=== PATIENT | female | born 1940 | race Caucasian/White ===

== ENCOUNTER 2019-11-29 12:45 | Emergency (ER) | payer MEDICARE ==
[2019-11-29] MEDS ORDERED: BENADRYL 50 MG/ML IV ONE (12:49)
[2019-11-29] MEDS ORDERED: Sodium Chloride 0.9% 1000 ML 1,000 ML IV STA (12:49)
[2019-11-29] MEDS ORDERED: Hydromorphone 1 mg/ml Ampule IV ONE (12:49)
[2019-11-29] MEDS ORDERED: Reglan 10 MG/2 ML IV ONE (12:49)
[2019-11-29] MEDS ORDERED: Hydromorphone 1 mg/ml Ampule ONE (13:00)
[2019-11-29] MEDS ORDERED: Sodium Chloride 0.9% 1000 ML 1,000 ML ONE (13:00)
[2019-11-29] MEDS ORDERED: BENADRYL 50 MG/ML ONE (13:00)
[2019-11-29] MEDS ORDERED: Reglan 10 MG/2 ML ONE (13:00)
[2019-11-29 13:33] LABS: Absolute Neutrophil Ct (ANC) 10.47 (1.4-6.9); BASOPHIL % 0.2 % (0.0-0.4); Basophil (Absolute #) 0.03 (0-0.4); Eosinophil % 0.4 % (0.00-5.0); Eosinophil (Absolute #) 0.05 (0-0.5); Hematocrit 40.6 % (35-47); Hemoglobin 13.5 gm/dl (12.0-16.0); Lymphocyte (Absolute #) 1.16 (1.0-4.6); Lymphocytes % 9.4 % (24.0-44.0); Mean Cell Volume 88.8 fl (78-100); Mean Corpuscular Hemoglobin 29.5 pg (26-32); Mean Corpuscular Hgb Concent. 33.3 g/dl (32-36); Mean Platelet Volume 8.6 fl (7.5-11.0); Monocyte (Absolute #) 0.66 (0.0-1.3); Monocytes % 5.3 % (0.0-12.0); Neutrophil % 84.7 % (36.0-66.0); Platelet Count 314 K/mm3 (150-450); Red Blood Count 4.57 M/mm3 (4.1-5.4); Red Cell Distribution Width 13.7 % (11.5-14.0); White Blood Count 12.4 K/mm3 (4.0-10.5)
[2019-11-29 13:38] LABS: INR 1.13 (0.8-3.0); PROTIME 12.8 SECONDS (9.95-12.35)
[2019-11-29 13:42] LABS: BLOOD UREA NITROGEN 11 mg/dL (7-17); Potassium 3.8 mmol/L (3.5-5.1); SGPT/ALT 17 U/L (0-35)
[2019-11-29 13:52] LABS: ALBUMIN 4.4 g/dL (3.5-5.0); ALKALINE PHOSPHATASE 42 U/L (38-126); ANION GAP 14.6 MEQ/L (5-15); CHLORIDE 91 mmol/L (98-107); Carbon Dioxide 25 mmol/L (22-30); Creatinine 1 0.44 mg/dL (0.52-1.04); Glucose 189 mg/dL (74-106); SGOT/AST 21 U/L (14-36); SODIUM 128 mmol/L (137-145)
[2019-11-29 13:57] LABS: Erythrocyte Sedimentation Rate 2 mm/hr (0-20)
--- NOTE | 2019-11-29 14:03 | XRAY ---
Indication: Headaches. History of migraines. Multiple contiguous axial images obtained through the head without contrast. Comparison: December 08, 2015. Again age-appropriate global atrophy and minimal periventricular degenerative micro-ischemia. No acute intracranial hemorrhage, abnormal extra-axial fluid collection, or mass effect. Fourth ventricle is midline without hydrocephalus. Bony calvarium intact. Visualized paranasal sinuses and mastoid air cells are clear. Impression: Continued nonacute senile brain.
[2019-11-29 14:06] VITALS: BP 143/58; PULSE 78; O2SAT 98
--- NOTE | 2019-11-29 14:57 | ERPHSYRPT ---
- History of Present Illness Time Seen by Provider: 11/29/19 12:50 Patient Subjective Stated Complaint: Pt states "I have had these headaches before. It started yesterday and It hurts on the back of my head. I vomited three times before the ambulance came and got me." Triage Nursing Assessment: Pt presented alert and oriented X 3, skin pwd Pt ambualtes with an upright steady gait, able to speak in clear full sentences pt in no apparent respiratory disterss. Pt has rag over her eyes an Physician History: Aaron is a 79-year-old female who presents with a severe headache she does not have any complaints of weakness drooping of the face etc. she has had some slight nausea and vomiting she has had similar headaches in the past and has been seen here in the ER for those she also reports she is been under a great deal of stress with the recent of her son. She does present by ambulance and her headache started today. Timing/Duration: yesterday Quality: throbbing Head Pain Location: global Severity of Pain-Max: severe Severity of Pain-Current: severe Recent Head Trauma: no recent headache/trauma, frequent headaches Modifying Factors: Improves With: exposure to light, noise Associated Symptoms: nausea/vomiting, sensitive to light, No vision changes, No visual disturbance Previous symptoms: same symptoms as today Allergies/Adverse Reactions: clindamycin Allergy (Intermediate, Verified 04/08/15 17:13) Swelling Penicillins Allergy (Mild, Verified 04/08/15 17:01) Rash aspirin Allergy (Verified 04/08/15 17:13) Hands turn blue when I take a baby aspirin lisinopril Adverse Reaction (Intermediate, Verified 04/08/15 17:13) Cough losartan [Losartan] Adverse Reaction (Intermediate, Verified 04/08/15 17:13) metoprolol Adverse Reaction (Intermediate, Verified 04/08/15 17:13) Nausea doxycycline Adverse Reaction (Mild, Verified 04/08/15 17:13) Diarrhea Home Medications: Glipizide Xl 5 mg [Glucotrol Xl 5 MG] 5 mg PO BID 01/28/12 [History] Metformin HCl 500 mg [Glucophage 500 MG] 850 mg PO BID 01/28/12 [History] Rosuvastatin Calcium [Crestor] 5 mg PO HS 01/28/12 [History] Amlodipine Besylate [Norvasc] 2.5 mg PO DAILY 04/08/15 [History] Aspirin EC 325 mg [Ecotrin 325 MG] 325 mg PO DAILY 04/08/15 [History] Carvedilol 12.5 mg [Coreg 12.5 mg] 12.5 mg PO BID 04/08/15 [History] Hx Tetanus, Diphtheria Vaccination/Date Given: No Hx Influenza Vaccination/Date Given: No Hx Pneumococcal Vaccination/Date Given: No Immunizations Up to Date: Yes Travel Risk - International Travel Have you traveled outside of the country in past 3 weeks: No - Coronavirus Screening Close contact with a COVID-19 positive Pt in past 14-21 Days: No - Review of Systems Constitutional: No Fever, No Chills Eyes: Photophobia Ears, Nose, & Throat: No Symptoms Respiratory: No Cough, No Dyspnea Cardiac: No Chest Pain, No Edema, No Syncope Abdominal/Gastrointestinal: Vomiting, No Abdominal Pain, No Diarrhea Genitourinary Symptoms: No Dysuria Musculoskeletal: No Back Pain, No Neck Pain Skin: No Rash Neurological: Headache, No Dizziness, No Focal Weakness, No Sensory Changes Psychological: No Symptoms Endocrine: No Symptoms All Other Systems: Reviewed and Negative - Past Medical History Pertinent Past Medical History: Yes Neurological History: No Pertinent History, Migraines ENT History: No Pertinent History Cardiac History: High Cholesterol, Hypertension, Other Respiratory History: No Pertinent History Endocrine Medical History: Diabetes Type II Musculoskeletal History: Arthritis GI Medical History: No Pertinent History History: No Pertinent History Psycho-Social History: No Pertinent History Female Reproductive Disorders: No Pertinent History - Past Surgical History Past Surgical History: Yes Neuro Surgical History: No Pertinent History Cardiac: No Pertinent History Respiratory: No Pertinent History Gastrointestinal: No Pertinent History Genitourinary: No Pertinent History Musculoskeletal: Joint Replacement Female Surgical History: Lumpectomy Other Surgical History: cyst from ovaries, cyst from scalp, lumpectomy, KNEE REPLACEMENT - Social History Smoking Status: Never smoker Exposure to second hand smoke: Yes Drug Use: none Patient Lives Alone: No - Nursing Vital Signs Nursing Vital Signs: Initial Vital Signs Temperature 97.8 F 11/29/19 12:45 Pulse Rate 84 11/29/19 12:45 Respiratory Rate 18 11/29/19 12:45 Blood Pressure 150/69 11/29/19 12:45 O2 Sat by Pulse Oximetry 97 11/29/19 12:45 Pain Scale Pain Intensity 4 - Physical Exam General Appearance: moderate distress Eye Exam: PERRL/EOMI Ears, Nose, Throat Exam: normal ENT inspection, moist mucous membranes Neck Exam: normal inspection, supple, full range of motion, No meningismus Respiratory Exam: normal breath sounds, lungs clear Cardiovascular Exam: regular rate/rhythm, normal heart sounds Gastrointestinal/Abdominal Exam: soft, No tenderness, No distention Back Exam: normal inspection, normal range of motion Mental Status Exam: alert, oriented x 3, cooperative agency recruiter Exam: normal speech, PERRL, No facial droop Coordination/Gait Exam: normal cerebellar function Motor/Sensory Exam: no motor deficit, no sensory deficit Skin Exam: normal color, warm, dry, No rash SpO2: 98 - Course Nursing assessment & vital signs reviewed: Yes - CT Exams Head CT Interpretation: Other (CT the head read as non-acute senile brain.) Ordered Tests: Active Orders 24 hr Category Date Time Status HEAD WITHOUT CONTRAST [CT] Stat Exams 11/29/19 12:49 Completed CBC W DIFF Stat Lab 11/29/19 13:25 Completed CMP Stat Lab 11/29/19 13:25 Completed Erythrocyte Sedimentation Rate Stat Lab 11/29/19 13:25 Completed Lactic Acid Urgent Lab 11/29/19 12:49 Completed PROTIME WITH INR Stat Lab 11/29/19 13:25 Completed Medication Summary Discontinued Medications Generic Name Dose Route Start Last Admin Trade Name Freq PRN Reason Stop Dose Admin Diphenhydramine HCl 25 mg 11/29/19 12:49 11/29/19 13:03 Benadryl 50 Mg/Ml IV 11/29/19 12:50 25 mg STAT ONE Administration Diphenhydramine HCl Confirm 11/29/19 13:00 Benadryl 50 Mg/Ml Administered 11/29/19 13:01 Dose 50 mg .ROUTE .STK-MED ONE Hydromorphone HCl 1 mg 11/29/19 12:49 11/29/19 13:03 Hydromorphone 1 Mg/Ml Ampule IV 11/29/19 12:50 1 mg STAT ONE Administration Hydromorphone HCl Confirm 11/29/19 13:00 Hydromorphone 1 Mg/Ml Ampule Administered 11/29/19 13:01 Dose 1 mg .ROUTE .STK-MED ONE Sodium Chloride 1,000 mls @ 999 mls/hr 11/29/19 12:49 11/29/19 13:03 Sodium Chloride 0.9% 1000 Ml IV 11/29/19 13:49 999 mls/hr .Q1H1M STA Administration Sodium Chloride Confirm 11/29/19 13:00 Sodium Chloride 0.9% 1000 Ml Administered 11/29/19 13:01 Dose 1,000 mls @ ud .ROUTE .STK-MED ONE Metoclopramide HCl 10 mg 11/29/19 12:49 11/29/19 13:03 Reglan 10 Mg/2 Ml IV 11/29/19 12:50 10 mg STAT ONE Administration Metoclopramide HCl Confirm 11/29/19 13:00 Reglan 10 Mg/2 Ml Administered 11/29/19 13:01 Dose 10 mg .ROUTE .STK-MED ONE Lab/Rad Data: Laboratory Result Diagrams 11/29/19 13:25 11/29/19 13:25 Laboratory Results 11/29/19 11/29/19 11/29/19 Range/Units 13:25 13:25 13:25 WBC 12.4 H (4.0-10.5) K/mm3 RBC 4.57 (4.1-5.4) M/mm3 Hgb 13.5 (12.0-16.0) gm/dl Hct 40.6 (35-47) % MCV 88.8 (78-100) fl MCH 29.5 (26-32) pg MCHC 33.3 (32-36) g/dl RDW 13.7 (11.5-14.0) % Plt Count 314 (150-450) K/mm3 MPV 8.6 (7.5-11.0) fl Gran % 84.7 H (36.0-66.0) % Eos # (Auto) 0.05 (0-0.5) Absolute Lymphs (auto) 1.16 (1.0-4.6) Absolute Monos (auto) 0.66 (0.0-1.3) Lymphocytes % 9.4 L (24.0-44.0) % Monocytes % 5.3 (0.0-12.0) % Eosinophils % 0.4 (0.00-5.0) % Basophils % 0.2 (0.0-0.4) % Absolute Granulocytes 10.47 H (1.4-6.9) Basophils # 0.03 (0-0.4) ESR 2 (0-20) mm/hr PT 12.8 H (9.95-12.35) SECONDS INR 1.13 (0.8-3.0) Sodium 128 L (137-145) mmol/L Potassium 3.8 (3.5-5.1) mmol/L Chloride 91 L (98-107) mmol/L Carbon Dioxide 25 (22-30) mmol/L Anion Gap 14.6 (5-15) MEQ/L BUN 11 (7-17) mg/dL Creatinine 0.44 L (0.52-1.04) mg/dL Estimated GFR > 60.0 ML/MIN Glucose 189 H (74-106) mg/dL Lactic Acid (0.4-2.0) Calcium 9.0 (8.4-10.2) mg/dL Total Bilirubin 1.20 (0.2-1.3) mg/dL AST 21 (14-36) U/L ALT 17 (0-35) U/L Alkaline Phosphatase 42 (38-126) U/L Serum Total Protein 7.0 (6.3-8.2) g/dL Albumin 4.4 (3.5-5.0) g/dL 11/29/19 Range/Units 12:49 WBC (4.0-10.5) K/mm3 RBC (4.1-5.4) M/mm3 Hgb (12.0-16.0) gm/dl Hct (35-47) % MCV (78-100) fl MCH (26-32) pg MCHC (32-36) g/dl RDW (11.5-14.0) % Plt Count (150-450) K/mm3 MPV (7.5-11.0) fl Gran % (36.0-66.0) % Eos # (Auto) (0-0.5) Absolute Lymphs (auto) (1.0-4.6) Absolute Monos (auto) (0.0-1.3) Lymphocytes % (24.0-44.0) % Monocytes % (0.0-12.0) % Eosinophils % (0.00-5.0) % Basophils % (0.0-0.4) % Absolute Granulocytes (1.4-6.9) Basophils # (0-0.4) ESR (0-20) mm/hr PT (9.95-12.35) SECONDS INR (0.8-3.0) Sodium (137-145) mmol/L Potassium (3.5-5.1) mmol/L Chloride (98-107) mmol/L Carbon Dioxide (22-30) mmol/L Anion Gap (5-15) MEQ/L BUN (7-17) mg/dL Creatinine (0.52-1.04) mg/dL Estimated GFR ML/MIN Glucose (74-106) mg/dL Lactic Acid 2.1 H (0.4-2.0) Calcium (8.4-10.2) mg/dL Total Bilirubin (0.2-1.3) mg/dL AST (14-36) U/L ALT (0-35) U/L Alkaline Phosphatase (38-126) U/L Serum Total Protein (6.3-8.2) g/dL Albumin (3.5-5.0) g/dL - Progress Progress: improved Air Movement: good Blood Culture(s) Obtained: No Antibiotics given: No - Departure Departure Disposition: Home Clinical Impression: Migraine headache Condition: Stable Critical Care Time: No Referrals: SHIRIN CHAPA MD [Primary Care Provider] - Instructions: Headache, Adult (DC) Prescriptions: Hydrocodone/APAP 5-325 Tab^^^ [[place] 5-325 Tablet^^^] 1 tab PO Q6HPRN PRN #10 tablet MDD 6 PRN Reason: Pain
== END 2019-11-29 15:40 | disposition home or self-care (01) ==
LOC: ED 12:45
DX: G43.909 Migraine, unspecified, not intractable, without status migrainosus (principal); I10 Essential (primary) hypertension; E11.9 Type 2 diabetes mellitus without complications; Z79.4 Long term (current) use of insulin; M19.90 Unspecified osteoarthritis, unspecified site
CPT/HCPCS: 36415; 70450; 80053; 83605; 85025; 85610; 85652; 96360; 96374; 96375; 99284; J1170; J1200

== ENCOUNTER 2020-03-31 18:40 | Observation (INO) | payer MEDICARE ==
[2020-03-31] MEDS ORDERED: Sodium Chloride 0.9% 1000 ML 1,000 ML IV SCH ×2 (19:15→23:40)
[2020-03-31 19:29] LABS: Absolute Neutrophil Ct (ANC) 5.16 (1.4-6.9); BASOPHIL % 0.6 % (0.0-0.4); Basophil (Absolute #) 0.05 (0-0.4); Eosinophil % 4.8 % (0.00-5.0); Eosinophil (Absolute #) 0.42 (0-0.5); Hematocrit 42.4 % (35-47); Hemoglobin 13.6 gm/dl (12.0-16.0); Lymphocyte (Absolute #) 2.29 (1.0-4.6); Lymphocytes % 26.1 % (24.0-44.0); Mean Cell Volume 92.6 fl (78-100); Mean Corpuscular Hemoglobin 29.7 pg (26-32); Mean Corpuscular Hgb Concent. 32.1 g/dl (32-36); Mean Platelet Volume 9.3 fl (7.5-11.0); Monocyte (Absolute #) 0.85 (0.0-1.3); Monocytes % 9.7 % (0.0-12.0); Neutrophil % 58.8 % (36.0-66.0); Platelet Count 318 K/mm3 (150-450); Red Blood Count 4.58 M/mm3 (4.1-5.4); Red Cell Distribution Width 13.5 % (11.5-14.0); White Blood Count 8.8 K/mm3 (4.0-10.5)
[2020-03-31 19:34] LABS: ALBUMIN 4.4 g/dL (3.5-5.0); ALKALINE PHOSPHATASE 47 U/L (38-126); ANION GAP 11.9 MEQ/L (5-15); BLOOD UREA NITROGEN 13 mg/dL (7-17); CHLORIDE 94 mmol/L (98-107); Calcium 9.2 mg/dL (8.4-10.2); Carbon Dioxide 28 mmol/L (22-30); Creatinine 1 0.38 mg/dL (0.52-1.04); EST GLOMERULAR FILTRATION RATE > 60.0 ML/MIN; Glucose 141 mg/dL (74-106); MAGNESIUM 1.7 mg/dL (1.6-2.3); SGOT/AST 22 U/L (14-36); SGPT/ALT 19 U/L (0-35); SODIUM 130 mmol/L (137-145); Total Protein 7.4 g/dL (6.3-8.2)
[2020-03-31] MEDS ORDERED: Sodium Chloride 0.9% 1000 ML 1,000 ML ONE (19:39)
--- NOTE | 2020-03-31 19:59 | ERPHSYRPT ---
- History of Present Illness Time Seen by Provider: 03/31/20 19:20 Source: patient Patient Subjective Stated Complaint: DAI and dizziness Triage Nursing Assessment: pt to ED c/o DAI and dizziness onset this late afternoon. states DAI 2/10 mostly "dizzy feeling and spinning." states dizziness occasionally casuses nausea without emesis. denies abd pain. to ED in WC and assist x 1 [address] bed. A&Ox4. skin PWD. pt presents laying in bed with closed eyes to prevent spinning. denies cardiac hx Physician History: Patient is a 79-year-old female presents to our ED for evaluation of headache and dizziness that started late this afternoon. Patient is not sure exactly what time her symptoms started but she estimates approximately 5 PM. Upon arrival patient was triaged by the dayshift. Dr. Patel saw the physician at approximately 720 after change of shift signout. Patient describes her dizziness as the room spinning. Patient states her symptoms are worse when she sits up. She expresses mild nausea. No vomiting. Patient headache is 2 out of 10. No associated numbness tingling or weakness. No trauma. No fever. No photophobia. Patient has no meningeal signs. No known Covid exposure. Chest pain or shortness of breath. Patient voices no other complaints concerns at this time. Timing/Duration: today Severity: moderate Modifying Factors: Improves With: nothing Associated Symptoms: nausea, headaches Allergies/Adverse Reactions: clindamycin Allergy (Intermediate, Verified 03/31/20 18:50) Swelling Penicillins Allergy (Mild, Verified 03/31/20 18:50) Rash aspirin Allergy (Verified 03/31/20 18:50) Hands turn blue when I take a baby aspirin lisinopril Adverse Reaction (Intermediate, Verified 03/31/20 18:50) Cough losartan [Losartan] Adverse Reaction (Intermediate, Verified 03/31/20 18:50) metoprolol Adverse Reaction (Intermediate, Verified 03/31/20 18:50) Nausea doxycycline Adverse Reaction (Mild, Verified 03/31/20 18:50) Diarrhea Home Medications: Glipizide Xl 5 mg [Glucotrol Xl 5 MG] 5 mg PO BID 01/28/12 [History] Metformin HCl 500 mg [Glucophage 500 MG] 850 mg PO BID 01/28/12 [History] Rosuvastatin Calcium [Crestor] 20 mg PO HS 10/20/12 [History] Amlodipine Besylate [Norvasc] 5 mg PO DAILY 04/08/15 [History] Aspirin EC 325 mg [Ecotrin 325 MG] 325 mg PO DAILY 04/08/15 [History] Carvedilol 12.5 mg [Coreg 12.5 mg] 12.5 mg PO BID 04/08/15 [History] Cyanocobalamin/Folic AC/Vit B6 [[place] Tablet] 1 tab PO DAILY 03/31/20 [History] Donepezil HCl 5 mg PO HS 03/31/20 [History] Hx Tetanus, Diphtheria Vaccination/Date Given: No Hx Influenza Vaccination/Date Given: No Hx Pneumococcal Vaccination/Date Given: No Travel Risk - International Travel Have you traveled outside of the country in past 3 weeks: No - Coronavirus Screening Are you exhibiting any of the following symptoms?: No Close contact with a COVID-19 positive Pt in past 14-21 Days: No - Review of Systems Constitutional: No Symptoms, No Fever, No Chills Eyes: No Symptoms Ears, Nose, & Throat: No Symptoms Respiratory: No Symptoms, No Cough, No Dyspnea Cardiac: No Symptoms, No Chest Pain, No Edema, No Syncope Abdominal/Gastrointestinal: No Symptoms, No Abdominal Pain, No Nausea, No Vomiting, No Diarrhea Genitourinary Symptoms: No Symptoms, No Dysuria Musculoskeletal: No Symptoms, No Back Pain, No Neck Pain Skin: No Symptoms, No Rash Neurological: No Symptoms, No Dizziness, No Focal Weakness, No Sensory Changes Psychological: No Symptoms Endocrine: No Symptoms Hematologic/Lymphatic: No Symptoms Immunological/Allergic: No Symptoms All Other Systems: Reviewed and Negative - Past Medical History Pertinent Past Medical History: Yes Neurological History: Migraines ENT History: No Pertinent History Cardiac History: High Cholesterol, Hypertension, Other Respiratory History: No Pertinent History Endocrine Medical History: Diabetes Type II Musculoskeletal History: Arthritis GI Medical History: No Pertinent History History: No Pertinent History Psycho-Social History: No Pertinent History Female Reproductive Disorders: No Pertinent History - Past Surgical History Past Surgical History: Yes Neuro Surgical History: No Pertinent History Cardiac: No Pertinent History Respiratory: No Pertinent History Gastrointestinal: No Pertinent History Genitourinary: No Pertinent History Musculoskeletal: Joint Replacement Female Surgical History: Lumpectomy Other Surgical History: cyst from ovaries, cyst from scalp, lumpectomy, KNEE REPLACEMENT - Social History Smoking Status: Never smoker Exposure to second hand smoke: Yes Drug Use: none Patient Lives Alone: No - Female History Hx Now: No - Nursing Vital Signs Nursing Vital Signs: Initial Vital Signs Pulse Rate 80 03/31/20 18:42 Respiratory Rate 20 03/31/20 18:42 O2 Sat by Pulse Oximetry 99 03/31/20 18:42 Pain Scale Pain Intensity 2 - Physical Exam General Appearance: no apparent distress, alert Eye Exam: PERRL/EOMI, eyes nml inspection Ears, Nose, Throat Exam: normal ENT inspection, TMs normal, pharynx normal, moist mucous membranes Neck Exam: normal inspection, non-tender, supple, full range of motion Respiratory Exam: normal breath sounds, lungs clear, No respiratory distress Cardiovascular Exam: regular rate/rhythm, normal heart sounds, normal peripheral pulses Gastrointestinal/Abdomen Exam: soft, normal bowel sounds, No tenderness, No mass Back Exam: normal inspection, normal range of motion, No CVA tenderness, No vertebral tenderness Extremity Exam: normal inspection, normal range of motion, pelvis stable Neurologic Exam: alert, oriented x 3, cooperative (No focal or lateralizing symptoms.), normal mood/affect, sensation nml, No motor deficits Skin Exam: normal color, warm, dry, No rash Lymphatic Exam: No adenopathy SpO2 Interpretation: normal SpO2: 97 O2 Delivery: Room Air - Course Nursing assessment & vital signs reviewed: Yes - CT Exams Head CT Interpretation: Tele-radiologist Report (CT angiogram head and neck. No comparison. Minimal calcifications left ICA without critical stenosis or obstruction. Normal variant origin remaining CTA [place] negative.) Other CT Interpretation: Tele-radiologist Report (Jermaine neck did mild left and minimal right carotid calcifications without critical stenosis or obstruction. Normal CTA vertebral arteries. Osteopenia and multilevel degenerative disc disease) Ordered Tests: Active Orders 24 hr Category Date Time Status Master Control Supervisor STAT Care 03/31/20 19:12 Active EKG-ER Only STAT Care 03/31/20 19:11 Active IV Insertion STAT Care 03/31/20 19:11 Active NPO (ED) STAT Care 03/31/20 19:59 Active Pulse Oximetry (ED) STAT Care 03/31/20 19:11 Active Consult Tele-Health [Tele-Health Consult] ROUTINE Cons 03/31/20 19:59 Active CTA HEAD W AND/OR WO CONTRAST [CT] Stat Exams 03/31/20 20:39 Taken HEAD WITHOUT CONTRAST [CT] Stat Exams 03/31/20 19:13 Taken NECK WITH CONTRAST [CT] Stat Exams 03/31/20 20:42 Taken CBC W DIFF Stat Lab 03/31/20 18:50 Completed CMP Stat Lab 03/31/20 18:50 Completed CULTURE,URINE Stat Lab 03/31/20 20:32 Received MAGNESIUM Stat Lab 03/31/20 18:50 Completed TROPONIN Q3H Lab 03/31/20 18:55 Completed TROPONIN Q3H Lab 03/31/20 23:00 Ordered TROPONIN Q3H Lab 04/01/20 02:00 Ordered TROPONIN Q3H Lab 04/01/20 05:00 Ordered TROPONIN Q3H Lab 04/01/20 08:00 Ordered UA W/RFX UR CULTURE Stat Lab 03/31/20 20:32 Completed Medication Summary Generic Name Dose Route Start Last Admin Trade Name Freq PRN Reason Stop Dose Admin Sodium Chloride 1,000 mls @ 100 mls/hr 03/31/20 19:15 03/31/20 19:44 Sodium Chloride 0.9% 1000 Ml IV 04/30/20 19:14 100 mls/hr .Q10H JOSE Administration Discontinued Medications Generic Name Dose Route Start Last Admin Trade Name Freq PRN Reason Stop Dose Admin Meclizine HCl 25 mg 03/31/20 22:52 Antivert 25 Mg PO 03/31/20 22:53 STAT ONE Ondansetron HCl 4 mg 03/31/20 20:36 03/31/20 20:36 Zofran 4 Mg/2 Ml Vial IV 03/31/20 20:37 4 mg STAT ONE Administration Ondansetron HCl Confirm 03/31/20 20:35 Zofran 4 Mg/2 Ml Vial Administered 03/31/20 20:36 Dose 4 mg .ROUTE .STK-MED ONE Lab/Rad Data: Laboratory Result Diagrams 03/31/20 18:50 03/31/20 18:50 Laboratory Results 03/31/20 03/31/20 03/31/20 Range/Units 20:32 18:55 18:50 WBC (4.0-10.5) K/mm3 RBC (4.1-5.4) M/mm3 Hgb (12.0-16.0) gm/dl Hct (35-47) % MCV (78-100) fl MCH (26-32) pg MCHC (32-36) g/dl RDW (11.5-14.0) % Plt Count (150-450) K/mm3 MPV (7.5-11.0) fl Gran % (36.0-66.0) % Eos # (Auto) (0-0.5) Absolute Lymphs (auto) (1.0-4.6) Absolute Monos (auto) (0.0-1.3) Lymphocytes % (24.0-44.0) % Monocytes % (0.0-12.0) % Eosinophils % (0.00-5.0) % Basophils % (0.0-0.4) % Absolute Granulocytes (1.4-6.9) Basophils # (0-0.4) Sodium 130 L (137-145) mmol/L Potassium 4.0 (3.5-5.1) mmol/L Chloride 94 L (98-107) mmol/L Carbon Dioxide 28 (22-30) mmol/L Anion Gap 11.9 (5-15) MEQ/L BUN 13 (7-17) mg/dL Creatinine 0.38 L (0.52-1.04) mg/dL Estimated GFR > 60.0 ML/MIN Glucose 141 H (74-106) mg/dL Calcium 9.2 (8.4-10.2) mg/dL Magnesium 1.7 (1.6-2.3) mg/dL Total Bilirubin 0.80 (0.2-1.3) mg/dL AST 22 (14-36) U/L ALT 19 (0-35) U/L Alkaline Phosphatase 47 (38-126) U/L Troponin I < 0.012 (0.000-0.034) ng/mL Serum Total Protein 7.4 (6.3-8.2) g/dL Albumin 4.4 (3.5-5.0) g/dL Urine Color YELLOW (YELLOW) Urine Appearance CLOUDY (CLEAR) Urine pH 8.0 (5-6) Ur Specific [place] 1.009 (1.005-1.025) Urine Protein NEGATIVE (Negative) Urine Ketones TRACE (NEGATIVE) Urine Blood SMALL (0-5) [place]/ul Urine Nitrite NEGATIVE (NEGATIVE) Urine Bilirubin NEGATIVE (NEGATIVE) Urine Urobilinogen NEGATIVE (0-1) mg/dL Ur Leukocyte Esterase SMALL (NEGATIVE) Urine WBC (Auto) 3-5 (0-5) /HPF Urine RBC (Auto) 6-10 (0-2) /HPF U Epithel Cells (Auto) RARE (FEW) /HPF Urine Bacteria (Auto) RARE (NEGATIVE) /HPF Amorphous Crystals FEW (NEGATIVE) /HPF Urine Mucus (Auto) SLIGHT (NEGATIVE) /HPF Urine Culture Reflexed YES (NO) Urine Glucose 50 (NEGATIVE) mg/dL 03/31/20 Range/Units 18:50 WBC 8.8 (4.0-10.5) K/mm3 RBC 4.58 (4.1-5.4) M/mm3 Hgb 13.6 (12.0-16.0) gm/dl Hct 42.4 (35-47) % MCV 92.6 (78-100) fl MCH 29.7 (26-32) pg MCHC 32.1 (32-36) g/dl RDW 13.5 (11.5-14.0) % Plt Count 318 (150-450) K/mm3 MPV 9.3 (7.5-11.0) fl Gran % 58.8 (36.0-66.0) % Eos # (Auto) 0.42 (0-0.5) Absolute Lymphs (auto) 2.29 (1.0-4.6) Absolute Monos (auto) 0.85 (0.0-1.3) Lymphocytes % 26.1 (24.0-44.0) % Monocytes % 9.7 (0.0-12.0) % Eosinophils % 4.8 (0.00-5.0) % Basophils % 0.6 (0.0-0.4) % Absolute Granulocytes 5.16 (1.4-6.9) Basophils # 0.05 (0-0.4) Sodium (137-145) mmol/L Potassium (3.5-5.1) mmol/L Chloride (98-107) mmol/L Carbon Dioxide (22-30) mmol/L Anion Gap (5-15) MEQ/L BUN (7-17) mg/dL Creatinine (0.52-1.04) mg/dL Estimated GFR ML/MIN Glucose (74-106) mg/dL Calcium (8.4-10.2) mg/dL Magnesium (1.6-2.3) mg/dL Total Bilirubin (0.2-1.3) mg/dL AST (14-36) U/L ALT (0-35) U/L Alkaline Phosphatase (38-126) U/L Troponin I (0.000-0.034) ng/mL Serum Total Protein (6.3-8.2) g/dL Albumin (3.5-5.0) g/dL Urine Color (YELLOW) Urine Appearance (CLEAR) Urine pH (5-6) Ur Specific [place] (1.005-1.025) Urine Protein (Negative) Urine Ketones (NEGATIVE) Urine Blood (0-5) [place]/ul Urine Nitrite (NEGATIVE) Urine Bilirubin (NEGATIVE) Urine Urobilinogen (0-1) mg/dL Ur Leukocyte Esterase (NEGATIVE) Urine WBC (Auto) (0-5) /HPF Urine RBC (Auto) (0-2) /HPF U Epithel Cells (Auto) (FEW) /HPF Urine Bacteria (Auto) (NEGATIVE) /HPF Amorphous Crystals (NEGATIVE) /HPF Urine Mucus (Auto) (NEGATIVE) /HPF Urine Culture Reflexed (NO) Urine Glucose (NEGATIVE) mg/dL - Progress Progress: improved Progress Note: 03/31/20 20:11 Patient was seen in room 9 initially. Upon my evaluation posterior circulation stroke was high on my differential. Stat CT head without contrast was ordered. CT head negative. Teleneuro states patient is not a candidate for TPA. IV fluids administered. Aspirin administered. CTA head and neck are negative for critical obstruction/acute pathology. IV fluids administered. Aspirin not given as patient has an allergy to aspirin. Case discussed with Dr. Chapa who accepts admission to observation. Plan of care discussed with patient. She agrees to admission to [facility] for further evaluation and treatment. 03/31/20 22:38 Please observe teleneuro recommendations. 03/31/20 22:53 03/31/20 22:55 Discussed with : Gilson Will see patient in: hospital (observation) Counseled pt/family regarding: lab results, diagnosis, rad results - Departure Departure Disposition: Home Clinical Impression: Dizziness, Nausea, Headache Condition: Stable Critical Care Time: No Referrals: SHIRIN CHAPA MD [Primary Care Provider] -
[2020-03-31] MEDS ORDERED: Zofran 4 MG/2 ML VIAL ONE (20:35)
[2020-03-31] MEDS ORDERED: Zofran 4 MG/2 ML VIAL IV ONE (20:36)
[2020-03-31 20:50] LABS: Amourphous Crystal FEW /HPF (NEGATIVE); Appearance CLOUDY (CLEAR); Bacteria RARE /HPF (NEGATIVE); Bilirubin NEGATIVE (NEGATIVE); Blood SMALL Ery/ul (0-5); Epithelial Cells RARE /HPF (FEW); Glucose 50 mg/dL (NEGATIVE); Ketones TRACE (NEGATIVE); Leukocyte Esterase SMALL (NEGATIVE); Mucus SLIGHT /HPF (NEGATIVE); Nitrite NEGATIVE (NEGATIVE); Protein,Urine Dip NEGATIVE (Negative); Specific Gravity 1.009 (1.005-1.025); Urobilinogen NEGATIVE mg/dL (0-1)
[2020-03-31] MEDS ORDERED: ANTIVERT 25 MG PO ONE (22:52)
[2020-03-31] MEDS ORDERED: ANTIVERT 25 MG ONE (22:54)
[2020-04-01 05:27] LABS: Absolute Neutrophil Ct (ANC) 6.91 (1.4-6.9); BASOPHIL % 0.3 % (0.0-0.4); Basophil (Absolute #) 0.03 (0-0.4); Eosinophil % 0.1 % (0.00-5.0); Eosinophil (Absolute #) 0.01 (0-0.5); Hematocrit 41.4 % (35-47); Hemoglobin 13.5 gm/dl (12.0-16.0); Lymphocyte (Absolute #) 1.37 (1.0-4.6); Lymphocytes % 15.4 % (24.0-44.0); Mean Cell Volume 91.4 fl (78-100); Mean Corpuscular Hemoglobin 29.8 pg (26-32); Mean Corpuscular Hgb Concent. 32.6 g/dl (32-36); Mean Platelet Volume 9.3 fl (7.5-11.0); Monocyte (Absolute #) 0.55 (0.0-1.3); Monocytes % 6.2 % (0.0-12.0); Platelet Count 317 K/mm3 (150-450); Red Blood Count 4.53 M/mm3 (4.1-5.4); Red Cell Distribution Width 13.2 % (11.5-14.0); White Blood Count 8.9 K/mm3 (4.0-10.5)
[2020-04-01 05:44] LABS: ALBUMIN 4.4 g/dL (3.5-5.0); ALKALINE PHOSPHATASE 43 U/L (38-126); ANION GAP 14.6 MEQ/L (5-15); BLOOD UREA NITROGEN 10 mg/dL (7-17); CHLORIDE 92 mmol/L (98-107); Calcium 9.3 mg/dL (8.4-10.2); Carbon Dioxide 26 mmol/L (22-30); Creatinine 1 0.41 mg/dL (0.52-1.04); EST GLOMERULAR FILTRATION RATE > 60.0 ML/MIN; Glucose 179 mg/dL (74-106); Potassium 4.5 mmol/L (3.5-5.1); SGOT/AST 19 U/L (14-36); SGPT/ALT 18 U/L (0-35); SODIUM 128 mmol/L (137-145); Total Protein 7.1 g/dL (6.3-8.2)
--- NOTE | 2020-04-01 08:47 | XRAY ---
Indication: Dizziness. Multiple contiguous axial images obtained through the head without contrast. Comparison: November 29, 2019. Stable age-appropriate global atrophy and minimal periventricular degenerative micro-ischemia. Again no acute intracranial hemorrhage, abnormal extra-axial fluid collection, or mass effect. Fourth ventricle is midline without hydrocephalus. Bony calvarium intact. Visualized paranasal sinuses and mastoid air cells are clear. Impression: Stable nonacute senile brain.
--- NOTE | 2020-04-01 08:53 | XRAY ---
Indication: Headache, dizziness, and hypertension. Large vessel occlusion. Conventional contrast-enhanced CTA neck performed using 100 cc Isovue 370 contrast. Two-dimensional sagittal and coronal reformatted images obtained. Comparison: None Aortic arch not included in the [id number]. Examination of the right carotid circulation demonstrates very minimal eccentric calcifications at the origin of the common carotid, carotid bulb, and origin internal carotid arteries without critical stenosis/obstruction. Remaining right carotid circulation normal in CTA appearance. Examination of the left carotid circulation demonstrates mild calcifications at the level of the bulb extending into the origin of the internal carotid artery without critical stenosis/obstruction. Remaining left carotid circulation normal in CTA appearance. Vertebral arteries are bilaterally symmetric with the left slightly larger in caliber. No critical stenosis, obstruction, or AV malformation. Visualized soft tissues are negative for pathologic cervical/supraclavicular lymphadenopathy. Thyroid gland enhances homogeneously. Supra and infraglottic airway widely patent. Osseous structures demineralized consistent with patient's age. Cervical spine demonstrates lordotic reversal, mild multilevel bilateral degenerative facet arthropathy, and minimal C5-C6 disc space narrowing. Lung apices are clear. CT and CTA head reported separately. Impression: 1. Minimal/mild scattered carotid calcifications, left greater than right as detailed above. Negative for critical stenosis/obstruction. 2. Incidental chronic bony findings.
--- NOTE | 2020-04-01 08:59 | XRAY ---
Indication: Headache, dizziness, and hypertension. Large vessel occlusion. Conventional contrast-enhanced CTA head performed using 100 cc Isovue 370 contrast. Two-dimensional sagittal and coronal reformatted images obtained. Comparison: None CTA neck reported separately. Distal internal carotid arteries demonstrates minimal scattered calcifications, left greater than right. No critical stenosis, projection, or AV malformation. Normal carotid terminus with normal branching A1 and M1 segments bilaterally. The more distal anterior cerebral, middle cerebral, anterior communicating, and left posterior communicating arteries are normal in CTA appearance. Incidental anatomic variant for origin of the right posterior cerebral artery. Posterior circulation demonstrates basilar artery to be normal in course and caliber and unremarkable. The branching superior cerebellar, anterior inferior cerebellar, and left posterior cerebral arteries are normal in CTA appearance. Venous drainage unremarkable. No abnormal enhancing intra-or extra-axial mass. CT head reported separately. Impression: Minimal scattered internal carotid artery calcifications, left greater than right. CTA brain is negative for critical stenosis/obstruction.
[2020-04-01] MEDS ORDERED: COREG 12.5 MG PO SCH (10:45)
[2020-04-01] MEDS ORDERED: FOLTX (FOLBIC) PO SCH (11:00)
[2020-04-01] MEDS ORDERED: Glucotrol Xl 2.5 MG PO SCH (11:00)
[2020-04-01] MEDS ORDERED: Glucophage 500 MG PO SCH (11:00)
[2020-04-01] MEDS ORDERED: NORVASC 5 MG PO SCH (11:00)
[2020-04-01] MEDS ORDERED: ECOTRIN 81 MG PO SCH (11:00)
--- NOTE | 2020-04-01 11:42 | PCM.SSS ---
History of Present Illness - Chief Complaint Chief Complaint: Headache, weakness, nausea for 1 day History of Present Illness: is a 79 year old female. presents to our ED for evaluation of headache and dizziness that started late this afternoon. Patient is not sure exactly what time her symptoms started but she estimates approximately 5 PM. Upon arrival patient was triaged by the dayshift. Dr. Patel saw the physician at approximately 720 after change of shift signout. Patient describes her dizziness as the room spinning. Patient states her symptoms are worse when she sits up. She expresses mild nausea. No vomiting. Patient headache is 2 out of 10. No associated numbness tingling or weakness. No trauma. No fever. No photophobia. Patient has no meningeal signs. No known Covid exposure. Chest pain or shortness of breath. Patient voices no other complaints concerns at this time. - Review of Systems Constitutional: No Fever, No Chills Eyes: No Symptoms Ears, Nose, & Throat: No Symptoms Respiratory: No Cough, No Short Of Breath Cardiac: No Chest Pain, No Edema, No Syncope Abdominal/Gastrointestinal: No Abdominal Pain, No Nausea, No Vomiting, No Diarrhea Genitourinary Symptoms: No Dysuria Musculoskeletal: No Back Pain, No Neck Pain Skin: No Rash Neurological: Headache, No Dizziness, No Focal Weakness, No Sensory Changes Psychological: No Symptoms Endocrine: No Symptoms Hematologic/Lymphatic: No Symptoms Immunological/Allergic: No Symptoms Medications & Allergies Home Medications: Home Medication List Glipizide Xl 5 mg [Glucotrol Xl 5 MG] 5 mg PO BID 01/28/12 [History Confirmed 03/31/20] Metformin HCl 500 mg [Glucophage 500 MG] 850 mg PO BID 01/28/12 [History Confirmed 03/31/20] Rosuvastatin Calcium [Crestor] 20 mg PO HS 01/28/12 [History Confirmed 03/31/20] Amlodipine Besylate [Norvasc] 5 mg PO DAILY 04/08/15 [History Confirmed 03/31/20] Carvedilol 12.5 mg [Coreg 12.5 mg] 12.5 mg PO BID 04/08/15 [History Confirmed 03/31/20] Cyanocobalamin/Folic AC/Vit B6 [Folbee Tablet] 1 tab PO DAILY 03/31/20 [History Confirmed 03/31/20] Donepezil HCl 5 mg PO HS 03/31/20 [History Confirmed 03/31/20] Aspirin EC 81 mg [Ecotrin 81 mg] 81 mg PO DAILY 04/01/20 [History Confirmed 04/01/20] Allergies/Adverse Reactions: Allergies Allergy/AdvReac Type Severity Reaction Status Date / Time clindamycin Allergy Intermediate Swelling Verified 03/31/20 18:50 Penicillins Allergy Mild Rash Verified 03/31/20 18:50 aspirin Allergy Verified 03/31/20 18:50 lisinopril AdvReac Intermediate Cough Verified 03/31/20 18:50 losartan [Losartan] AdvReac Intermediate Verified 03/31/20 18:50 metoprolol AdvReac Intermediate Nausea Verified 03/31/20 18:50 doxycycline AdvReac Mild Diarrhea Verified 03/31/20 18:50 - Past Medical History Past Medical History: Yes Neurological History: Migraines ENT History: No Pertinent History Cardiac History: High Cholesterol, Hypertension, Other Respiratory History: No Pertinent History Endocrine Medical History: Diabetes Type II Musculoskelatal History: Arthritis GI Medical History: No Pertinent History History: No Pertinent History Pyscho-Social History: No Pertinent History Reproductive Disorders: No Pertinent History - Female History Are you now?: No - Past Surgical History Past Surgical History: Yes Neuro Surgical History: No Pertinent History Cardiac History: No Pertinent History Respiratory Surgery: No Pertinent History GI Surgical History: No Pertinent History Genitourinary Surgical Hx: No Pertinent History Musculskeletal Surgical Hx: Joint Replacement Female Surgical History: Lumpectomy Other Surgical History: cyst from ovaries, cyst from scalp, lumpectomy, KNEE REPLACEMENT - Social History Smoking Status: Never smoker Exposure to second hand smoke: Yes Alcohol: None Drug Use: none - Physical Exam Vital Signs: Vital Signs - 24 hr Temp Pulse Resp BP Pulse Ox 04/01/20 11:30 98.1 F 80 16 137/64 96 04/01/20 08:00 16 04/01/20 07:50 98.0 F 84 16 124/55 94 L 04/01/20 07:03 97 04/01/20 04:05 97.9 F 83 18 146/65 94 L 04/01/20 04:00 18 04/01/20 00:11 97.5 F 83 16 150/68 93 L 04/01/20 00:09 97.5 F 83 16 150/68 93 L 04/01/20 00:08 97.5 F 83 16 150/68 93 L 04/01/20 00:00 93 L 03/31/20 23:00 89 16 167/85 96 03/31/20 22:56 97 03/31/20 22:00 89 20 167/87 96 03/31/20 21:34 81 18 173/91 98 03/31/20 20:00 80 18 171/74 97 03/31/20 19:41 75 16 161/63 97 03/31/20 19:38 97 03/31/20 18:42 80 20 99 General Appearance: no apparent distress, alert Neurologic Exam: alert, oriented x 3, cooperative, normal mood/affect, nml cerebellar function, nml station & gait, sensation nml, No motor deficits Eye Exam: PERRL/EOMI, eyes nml inspection Ears, Nose, Throat Exam: normal ENT inspection, TMs normal, pharynx normal, moist mucous membranes Neck Exam: normal inspection, non-tender, supple, full range of motion Respiratory Exam: normal breath sounds, lungs clear, No respiratory distress Cardiovascular Exam: regular rate/rhythm, normal heart sounds, normal peripheral pulses Gastrointestinal/Abdomen Exam: soft, normal bowel sounds, No tenderness, No mass Back Exam: normal inspection, normal range of motion, No CVA tenderness, No vertebral tenderness Extremity Exam: normal inspection, normal range of motion, pelvis stable Skin Exam: normal color, warm, dry, No rash Lymphatic Exam: No adenopathy Results - Labs Lab/Micro Results: Lab Results-Last 24 Hours 03/31/20 03/31/20 03/31/20 Range/Units 18:50 18:50 18:55 WBC 8.8 (4.0-10.5) K/mm3 RBC 4.58 (4.1-5.4) M/mm3 Hgb 13.6 (12.0-16.0) gm/dl Hct 42.4 (35-47) % MCV 92.6 (78-100) fl MCH 29.7 (26-32) pg MCHC 32.1 (32-36) g/dl RDW 13.5 (11.5-14.0) % Plt Count 318 (150-450) K/mm3 MPV 9.3 (7.5-11.0) fl Gran % 58.8 (36.0-66.0) % Eos # (Auto) 0.42 (0-0.5) Absolute Lymphs (auto) 2.29 (1.0-4.6) Absolute Monos (auto) 0.85 (0.0-1.3) Lymphocytes % 26.1 (24.0-44.0) % Monocytes % 9.7 (0.0-12.0) % Eosinophils % 4.8 (0.00-5.0) % Basophils % 0.6 (0.0-0.4) % Absolute Granulocytes 5.16 (1.4-6.9) Basophils # 0.05 (0-0.4) Sodium 130 L (137-145) mmol/L Potassium 4.0 (3.5-5.1) mmol/L Chloride 94 L (98-107) mmol/L Carbon Dioxide 28 (22-30) mmol/L Anion Gap 11.9 (5-15) MEQ/L BUN 13 (7-17) mg/dL Creatinine 0.38 L (0.52-1.04) mg/dL Estimated GFR > 60.0 ML/MIN Glucose 141 H (74-106) mg/dL POC Glucometer (74 to 106) mg/dL Calcium 9.2 (8.4-10.2) mg/dL Magnesium 1.7 (1.6-2.3) mg/dL Total Bilirubin 0.80 (0.2-1.3) mg/dL AST 22 (14-36) U/L ALT 19 (0-35) U/L Alkaline Phosphatase 47 (38-126) U/L Troponin I < 0.012 (0.000-0.034) ng/mL Serum Total Protein 7.4 (6.3-8.2) g/dL Albumin 4.4 (3.5-5.0) g/dL Urine Color (YELLOW) Urine Appearance (CLEAR) Urine pH (5-6) Ur Specific [place] (1.005-1.025) Urine Protein (Negative) Urine Ketones (NEGATIVE) Urine Blood (0-5) Kw[place]/ul Urine Nitrite (NEGATIVE) Urine Bilirubin (NEGATIVE) Urine Urobilinogen (0-1) mg/dL Ur Leukocyte Esterase (NEGATIVE) Urine WBC (Auto) (0-5) /HPF Urine RBC (Auto) (0-2) /HPF U Epithel Cells (Auto) (FEW) /HPF Urine Bacteria (Auto) (NEGATIVE) /HPF Amorphous Crystals (NEGATIVE) /HPF Urine Mucus (Auto) (NEGATIVE) /HPF Urine Culture Reflexed (NO) Urine Glucose (NEGATIVE) mg/dL 03/31/20 03/31/20 04/01/20 Range/Units 20:32 23:15 00:23 WBC (4.0-10.5) K/mm3 RBC (4.1-5.4) M/mm3 Hgb (12.0-16.0) gm/dl Hct (35-47) % MCV (78-100) fl MCH (26-32) pg MCHC (32-36) g/dl RDW (11.5-14.0) % Plt Count (150-450) K/mm3 MPV (7.5-11.0) fl Gran % (36.0-66.0) % Eos # (Auto) (0-0.5) Absolute Lymphs (auto) (1.0-4.6) Absolute Monos (auto) (0.0-1.3) Lymphocytes % (24.0-44.0) % Monocytes % (0.0-12.0) % Eosinophils % (0.00-5.0) % Basophils % (0.0-0.4) % Absolute Granulocytes (1.4-6.9) Basophils # (0-0.4) Sodium (137-145) mmol/L Potassium (3.5-5.1) mmol/L Chloride (98-107) mmol/L Carbon Dioxide (22-30) mmol/L Anion Gap (5-15) MEQ/L BUN (7-17) mg/dL Creatinine (0.52-1.04) mg/dL Estimated GFR ML/MIN Glucose (74-106) mg/dL POC Glucometer 195 H (74 to 106) mg/dL Calcium (8.4-10.2) mg/dL Magnesium (1.6-2.3) mg/dL Total Bilirubin (0.2-1.3) mg/dL AST (14-36) U/L ALT (0-35) U/L Alkaline Phosphatase (38-126) U/L Troponin I < 0.012 (0.000-0.034) ng/mL Serum Total Protein (6.3-8.2) g/dL Albumin (3.5-5.0) g/dL Urine Color YELLOW (YELLOW) Urine Appearance CLOUDY (CLEAR) Urine pH 8.0 (5-6) Ur Specific [place] 1.009 (1.005-1.025) Urine Protein NEGATIVE (Negative) Urine Ketones TRACE (NEGATIVE) Urine Blood SMALL (0-5) Kwaku/ul Urine Nitrite NEGATIVE (NEGATIVE) Urine Bilirubin NEGATIVE (NEGATIVE) Urine Urobilinogen NEGATIVE (0-1) mg/dL Ur Leukocyte Esterase SMALL (NEGATIVE) Urine WBC (Auto) 3-5 (0-5) /HPF Urine RBC (Auto) 6-10 (0-2) /HPF U Epithel Cells (Auto) RARE (FEW) /HPF Urine Bacteria (Auto) RARE (NEGATIVE) /HPF Amorphous Crystals FEW (NEGATIVE) /HPF Urine Mucus (Auto) SLIGHT (NEGATIVE) /HPF Urine Culture Reflexed YES (NO) Urine Glucose 50 (NEGATIVE) mg/dL 04/01/20 04/01/20 04/01/20 Range/Units 02:05 04:55 04:55 WBC 8.9 (4.0-10.5) K/mm3 RBC 4.53 (4.1-5.4) M/mm3 Hgb 13.5 (12.0-16.0) gm/dl Hct 41.4 (35-47) % MCV 91.4 (78-100) fl MCH 29.8 (26-32) pg MCHC 32.6 (32-36) g/dl RDW 13.2 (11.5-14.0) % Plt Count 317 (150-450) K/mm3 MPV 9.3 (7.5-11.0) fl Gran % 78.0 H (36.0-66.0) % Eos # (Auto) 0.01 (0-0.5) Absolute Lymphs (auto) 1.37 (1.0-4.6) Absolute Monos (auto) 0.55 (0.0-1.3) Lymphocytes % 15.4 L (24.0-44.0) % Monocytes % 6.2 (0.0-12.0) % Eosinophils % 0.1 (0.00-5.0) % Basophils % 0.3 (0.0-0.4) % Absolute Granulocytes 6.91 H (1.4-6.9) Basophils # 0.03 (0-0.4) Sodium (137-145) mmol/L Potassium (3.5-5.1) mmol/L Chloride (98-107) mmol/L Carbon Dioxide (22-30) mmol/L Anion Gap (5-15) MEQ/L BUN (7-17) mg/dL Creatinine (0.52-1.04) mg/dL Estimated GFR ML/MIN Glucose (74-106) mg/dL POC Glucometer (74 to 106) mg/dL Calcium (8.4-10.2) mg/dL Magnesium (1.6-2.3) mg/dL Total Bilirubin (0.2-1.3) mg/dL AST (14-36) U/L ALT (0-35) U/L Alkaline Phosphatase (38-126) U/L Troponin I < 0.012 < 0.012 (0.000-0.034) ng/mL Serum Total Protein (6.3-8.2) g/dL Albumin (3.5-5.0) g/dL Urine Color (YELLOW) Urine Appearance (CLEAR) Urine pH (5-6) Ur Specific [place] (1.005-1.025) Urine Protein (Negative) Urine Ketones (NEGATIVE) Urine Blood (0-5) Kwaku/ul Urine Nitrite (NEGATIVE) Urine Bilirubin (NEGATIVE) Urine Urobilinogen (0-1) mg/dL Ur Leukocyte Esterase (NEGATIVE) Urine WBC (Auto) (0-5) /HPF Urine RBC (Auto) (0-2) /HPF U Epithel Cells (Auto) (FEW) /HPF Urine Bacteria (Auto) (NEGATIVE) /HPF Amorphous Crystals (NEGATIVE) /HPF Urine Mucus (Auto) (NEGATIVE) /HPF Urine Culture Reflexed (NO) Urine Glucose (NEGATIVE) mg/dL 04/01/20 04/01/20 04/01/20 Range/Units 04:55 08:05 11:26 WBC (4.0-10.5) K/mm3 RBC (4.1-5.4) M/mm3 Hgb (12.0-16.0) gm/dl Hct (35-47) % MCV (78-100) fl MCH (26-32) pg MCHC (32-36) g/dl RDW (11.5-14.0) % Plt Count (150-450) K/mm3 MPV (7.5-11.0) fl Gran % (36.0-66.0) % Eos # (Auto) (0-0.5) Absolute Lymphs (auto) (1.0-4.6) Absolute Monos (auto) (0.0-1.3) Lymphocytes % (24.0-44.0) % Monocytes % (0.0-12.0) % Eosinophils % (0.00-5.0) % Basophils % (0.0-0.4) % Absolute Granulocytes (1.4-6.9) Basophils # (0-0.4) Sodium 128 L (137-145) mmol/L Potassium 4.5 (3.5-5.1) mmol/L Chloride 92 L (98-107) mmol/L Carbon Dioxide 26 (22-30) mmol/L Anion Gap 14.6 (5-15) MEQ/L BUN 10 (7-17) mg/dL Creatinine 0.41 L (0.52-1.04) mg/dL Estimated GFR > 60.0 ML/MIN Glucose 179 H (74-106) mg/dL POC Glucometer 238 H (74 to 106) mg/dL Calcium 9.3 (8.4-10.2) mg/dL Magnesium (1.6-2.3) mg/dL Total Bilirubin 1.10 (0.2-1.3) mg/dL AST 19 (14-36) U/L ALT 18 (0-35) U/L Alkaline Phosphatase 43 (38-126) U/L Troponin I < 0.012 (0.000-0.034) ng/mL Serum Total Protein 7.1 (6.3-8.2) g/dL Albumin 4.4 (3.5-5.0) g/dL Urine Color (YELLOW) Urine Appearance (CLEAR) Urine pH (5-6) Ur Specific [place] (1.005-1.025) Urine Protein (Negative) Urine Ketones (NEGATIVE) Urine Blood (0-5) Kwaku/ul Urine Nitrite (NEGATIVE) Urine Bilirubin (NEGATIVE) Urine Urobilinogen (0-1) mg/dL Ur Leukocyte Esterase (NEGATIVE) Urine WBC (Auto) (0-5) /HPF Urine RBC (Auto) (0-2) /HPF U Epithel Cells (Auto) (FEW) /HPF Urine Bacteria (Auto) (NEGATIVE) /HPF Amorphous Crystals (NEGATIVE) /HPF Urine Mucus (Auto) (NEGATIVE) /HPF Urine Culture Reflexed (NO) Urine Glucose (NEGATIVE) mg/dL Microbiology 03/31/20 20:32 Urine Culture - Preliminary Urine, Void NO GROWTH TO DATE Accuchecks Date 04/01/20 Date 04/01/20 Time 08:27 Time 00:23 - Radiology Impressions Radiology Exams & Impressions: Radiology Procedures Category Date Time Status CTA HEAD W AND/OR WO CONTRAST [CT] Stat Exams 03/31/20 20:39 Completed HEAD WITHOUT CONTRAST [CT] Stat Exams 03/31/20 19:13 Completed MRA BRAIN WITHOUT CONTRAST [MRI] Urgent Exams 04/01/20 08:56 Ordered MRA NECK WITH CONTRAST [MRI] Urgent Exams 04/01/20 08:56 Ordered MRI BRAIN W/O CONTRAST [MRI] Urgent Exams 04/01/20 08:56 Ordered NECK WITH CONTRAST [CT] Stat Exams 03/31/20 20:42 Completed Assessment/Plan (1) Vertebrobasilar circulation transient ischemic attack Current Visit: Yes Status: Acute Assessment & Plan: Chief Complaint Diagnosis Headache, weakness, nausea Allergies Allergy/AdvReac Type Severity Reaction Status Date / Time clindamycin Allergy Intermediate Swelling Verified 03/31/20 18:50 Penicillins Allergy Mild Rash Verified 03/31/20 18:50 aspirin Allergy Verified 03/31/20 18:50 lisinopril AdvReac Intermediate Cough Verified 03/31/20 18:50 losartan [Losartan] AdvReac Intermediate Verified 03/31/20 18:50 metoprolol AdvReac Intermediate Nausea Verified 03/31/20 18:50 doxycycline AdvReac Mild Diarrhea Verified 03/31/20 18:50 Vital Signs (Last 24 hours) Temp Pulse Resp BP Pulse Ox 04/01/20 11:30 98.1 F 80 16 137/64 96 04/01/20 08:00 16 04/01/20 07:50 98.0 F 84 16 124/55 94 L 04/01/20 07:03 97 04/01/20 04:05 97.9 F 83 18 146/65 94 L 04/01/20 04:00 18 04/01/20 00:11 97.5 F 83 16 150/68 93 L 04/01/20 00:09 97.5 F 83 16 150/68 93 L 04/01/20 00:08 97.5 F 83 16 150/68 93 L 04/01/20 00:00 93 L 03/31/20 23:00 89 16 167/85 96 03/31/20 22:56 97 03/31/20 22:00 89 20 167/87 96 03/31/20 21:34 81 18 173/91 98 03/31/20 20:00 80 18 171/74 97 03/31/20 19:41 75 16 161/63 97 03/31/20 19:38 97 03/31/20 18:42 80 20 99 Home Medications Medication Instructions Recorded Confirmed Last Taken Type Cyanocobalamin/Folic AC/Vit B6 1 tab PO DAILY 03/31/20 03/31/20 03/31/20 09:00 History [Folbee Tablet] Donepezil HCl 5 mg PO HS 03/31/20 03/31/20 03/30/20 21:00 History Aspirin EC 81 mg [Ecotrin 81 81 mg PO DAILY 04/01/20 04/01/20 Unknown History mg] Current Medications Generic Name Dose Route Start Last Admin Trade Name Zoey PRN Reason Stop Dose Admin Amlodipine Besylate 5 mg 04/01/20 11:00 Norvasc 5 Mg PO 05/01/20 10:59 DAILY JOSE Aspirin 81 mg 04/01/20 11:00 Ecotrin 81 Mg PO 05/01/20 10:59 DAILY JOSE Carvedilol 12.5 mg 04/01/20 10:45 Coreg 12.5 Mg PO 05/01/20 10:44 BID JOSE Donepezil HCl 5 mg 04/01/20 22:00 Aricept 10 Mg PO 05/01/20 21:59 HS JOSE Folic Acid 1 tab 04/01/20 11:00 Foltx (Folbic) PO 05/01/20 10:59 DAILY JOSE Glipizide 5 mg 04/01/20 11:00 Glucotrol Xl 2.5 Mg PO 05/01/20 10:59 BID JOSE Sodium Chloride 1,000 mls @ 75 mls/hr 03/31/20 23:40 04/01/20 08:19 Sodium Chloride 0.9% 1000 Ml IV 04/30/20 23:39 75 mls/hr .[id number] JOSE Administration Metformin HCl 850 mg 04/01/20 17:00 Glucophage 850 Mg PO 05/01/20 10:44 BIDWMEALS [facility] Simvastatin 40 mg 04/01/20 22:00 Zocor 20mg PO 05/01/20 21:59 HS [facility] Discontinued Medications Generic Name Dose Route Start Last Admin Trade Name Freq PRN Reason Stop Dose Admin Sodium Chloride 1,000 mls @ 100 mls/hr 03/31/20 19:15 03/31/20 19:44 Sodium Chloride 0.9% 1000 Ml IV 04/30/20 19:14 100 mls/hr .Q10H JOSE Administration Sodium Chloride Confirm 03/31/20 19:39 Sodium Chloride 0.9% 1000 Ml Administered 03/31/20 19:40 Dose 1,000 mls @ ud .ROUTE .STK-MED ONE Meclizine HCl 25 mg 03/31/20 22:52 03/31/20 22:55 Antivert 25 Mg PO 03/31/20 22:53 25 mg STAT ONE Administration Meclizine HCl Confirm 03/31/20 22:54 Antivert 25 Mg Administered 03/31/20 22:55 Dose 25 mg .ROUTE .STK-MED ONE Metformin HCl 850 mg 04/01/20 11:00 Glucophage 500 Mg PO 05/01/20 10:59 BIDWM [facility] Ondansetron HCl 4 mg 03/31/20 20:36 03/31/20 20:36 Zofran 4 Mg/2 Ml Vial IV 03/31/20 20:37 4 mg STAT ONE Administration Ondansetron HCl Confirm 03/31/20 20:35 Zofran 4 Mg/2 Ml Vial Administered 03/31/20 20:36 Dose 4 mg .ROUTE .STK-MED ONE Intake & Output (Last 24 hours) 03/29/20 03/30/20 03/31/20 04/01/20 11:59 11:59 11:59 11:59 Intake Total 1030 Output Total 600 Balance 430 Weight 74.3 kg Microbiology Results (Last 24 hours) 03/31/20 20:32 Urine, Void Urine Culture - Preliminary NO GROWTH TO DATE Laboratory Results (Last 24 hours) 04/01/20 04/01/20 04/01/20 11:26 08:05 04:55 WBC RBC Hgb Hct MCV MCH MCHC RDW Plt Count MPV Gran % Eos # (Auto) Absolute Lymphs (auto) Absolute Monos (auto) Lymphocytes % Monocytes % Eosinophils % Basophils % Absolute Granulocytes Basophils # Sodium 128 L Potassium 4.5 Chloride 92 L Carbon Dioxide 26 Anion Gap 14.6 BUN 10 Creatinine 0.41 L Estimated GFR > 60.0 Glucose 179 H POC Glucometer 238 H Calcium 9.3 Magnesium Total Bilirubin 1.10 AST 19 ALT 18 Alkaline Phosphatase 43 Troponin I < 0.012 Serum Total Protein 7.1 Albumin 4.4 Urine Color Urine Appearance Urine pH Ur Specific [place] Urine Protein Urine Ketones Urine Blood Urine Nitrite Urine Bilirubin Urine Urobilinogen Ur Leukocyte Esterase Urine WBC (Auto) Urine RBC (Auto) U Epithel Cells (Auto) Urine Bacteria (Auto) Amorphous Crystals Urine Mucus (Auto) Urine Culture Reflexed Urine Glucose 04/01/20 04/01/20 04/01/20 04:55 04:55 02:05 WBC 8.9 RBC 4.53 Hgb 13.5 Hct 41.4 MCV 91.4 MCH 29.8 MCHC 32.6 RDW 13.2 Plt Count 317 MPV 9.3 Gran % 78.0 H Eos # (Auto) 0.01 Absolute Lymphs (auto) 1.37 Absolute Monos (auto) 0.55 Lymphocytes % 15.4 L Monocytes % 6.2 Eosinophils % 0.1 Basophils % 0.3 Absolute Granulocytes 6.91 H Basophils # 0.03 Sodium Potassium Chloride Carbon Dioxide Anion Gap BUN Creatinine Estimated GFR Glucose POC Glucometer Calcium Magnesium Total Bilirubin AST ALT Alkaline Phosphatase Troponin I < 0.012 < 0.012 Serum Total Protein Albumin Urine Color Urine Appearance Urine pH Ur Specific [place] Urine Protein Urine Ketones Urine Blood Urine Nitrite Urine Bilirubin Urine Urobilinogen Ur Leukocyte Esterase Urine WBC (Auto) Urine RBC (Auto) U Epithel Cells (Auto) Urine Bacteria (Auto) Amorphous Crystals Urine Mucus (Auto) Urine Culture Reflexed Urine Glucose 04/01/20 03/31/20 03/31/20 00:23 23:15 20:32 WBC RBC Hgb Hct MCV MCH MCHC RDW Plt Count MPV Gran % Eos # (Auto) Absolute Lymphs (auto) Absolute Monos (auto) Lymphocytes % Monocytes % Eosinophils % Basophils % Absolute Granulocytes Basophils # Sodium Potassium Chloride Carbon Dioxide Anion Gap BUN Creatinine Estimated GFR Glucose POC Glucometer 195 H Calcium Magnesium Total Bilirubin AST ALT Alkaline Phosphatase Troponin I < 0.012 Serum Total Protein Albumin Urine Color YELLOW Urine Appearance CLOUDY Urine pH 8.0 Ur Specific [place] 1.009 Urine Protein NEGATIVE Urine Ketones TRACE Urine Blood SMALL Urine Nitrite NEGATIVE Urine Bilirubin NEGATIVE Urine Urobilinogen NEGATIVE Ur Leukocyte Esterase SMALL Urine WBC (Auto) 3-5 Urine RBC (Auto) 6-10 U Epithel Cells (Auto) RARE Urine Bacteria (Auto) RARE Amorphous Crystals FEW Urine Mucus (Auto) SLIGHT Urine Culture Reflexed YES Urine Glucose 50 03/31/20 03/31/20 03/31/20 18:55 18:50 18:50 WBC 8.8 RBC 4.58 Hgb 13.6 Hct 42.4 MCV 92.6 MCH 29.7 MCHC 32.1 RDW 13.5 Plt Count 318 MPV 9.3 Gran % 58.8 Eos # (Auto) 0.42 Absolute Lymphs (auto) 2.29 Absolute Monos (auto) 0.85 Lymphocytes % 26.1 Monocytes % 9.7 Eosinophils % 4.8 Basophils % 0.6 Absolute Granulocytes 5.16 Basophils # 0.05 Sodium 130 L Potassium 4.0 Chloride 94 L Carbon Dioxide 28 Anion Gap 11.9 BUN 13 Creatinine 0.38 L Estimated GFR > 60.0 Glucose 141 H POC Glucometer Calcium 9.2 Magnesium 1.7 Total Bilirubin 0.80 AST 22 ALT 19 Alkaline Phosphatase 47 Troponin I < 0.012 Serum Total Protein 7.4 Albumin 4.4 Urine Color Urine Appearance Urine pH Ur Specific [place] Urine Protein Urine Ketones Urine Blood Urine Nitrite Urine Bilirubin Urine Urobilinogen Ur Leukocyte Esterase Urine WBC (Auto) Urine RBC (Auto) U Epithel Cells (Auto) Urine Bacteria (Auto) Amorphous Crystals Urine Mucus (Auto) Urine Culture Reflexed Urine Glucose Orders (Last 24 hours) Category Date Time Status Bedrest ROUTINE Activity 03/31/20 23:40 Active Organ Tuner Electronic STAT Care 03/31/20 19:12 Completed Code Status Order ROUTINE Care 03/31/20 23:40 Active EKG-ER Only STAT Care 03/31/20 19:11 Completed IV Care Q6H Care 03/31/20 23:40 Active IV Insertion STAT Care 03/31/20 19:11 Completed NPO (ED) STAT Care 03/31/20 19:59 Completed Neuro Checks Q4H Care 03/31/20 23:[address] in Observation ROUTINE Care 03/31/20 23:40 Active Pulse Oximetry (ED) STAT Care 03/31/20 19:11 Completed Telemetry q6h Care 03/31/20 23:40 Active Consult Tele-Health [Tele-Health Consult] ROUTINE Cons 03/31/20 19:59 Completed Qc Lab Technician/Discharge Plan ROUTINE Cons 04/01/20 00:37 Active Nutritional Admission Screen ONCE Diet 04/01/20 00:37 Active CTA HEAD W AND/OR WO CONTRAST [CT] Stat Exams 03/31/20 20:39 Completed HEAD WITHOUT CONTRAST [CT] Stat Exams 03/31/20 19:13 Completed MRA BRAIN WITHOUT CONTRAST [MRI] Urgent Exams 04/01/20 08:56 Ordered MRA NECK WITH CONTRAST [MRI] Urgent Exams 04/01/20 08:56 Ordered MRI BRAIN W/O CONTRAST [MRI] Urgent Exams 04/01/20 08:56 Ordered NECK WITH CONTRAST [CT] Stat Exams 03/31/20 20:42 Completed CBC W DIFF AM.LAB Lab 04/01/20 04:55 Completed CBC W DIFF Stat Lab 03/31/20 18:50 Completed CMP AM.LAB Lab 04/01/20 04:55 Completed CMP Stat Lab 03/31/20 18:50 Completed CULTURE,URINE Stat Lab 03/31/20 20:32 Results MAGNESIUM Stat Lab 03/31/20 18:50 Completed POCT GLUCOSE Stat Lab 04/01/20 00:23 Completed POCT GLUCOSE Stat Lab 04/01/20 11:26 Completed TROPONIN Q3H Lab 03/31/20 18:55 Completed TROPONIN Q3H Lab 03/31/20 23:15 Completed TROPONIN Q3H Lab 04/01/20 02:05 Completed TROPONIN Q3H Lab 04/01/20 04:55 Completed TROPONIN Q3H Lab 04/01/20 08:05 Completed UA W/RFX UR CULTURE Stat Lab 03/31/20 20:32 Completed Amlodipine Besylate 5 mg [Norvasc 5 mg] Med 04/01/20 11:00 Active 5 mg PO DAILY Aspirin EC 81 mg [Ecotrin 81 mg] Med 04/01/20 11:00 Active 81 mg PO DAILY Carvedilol 12.5 mg [Coreg 12.5 mg] Med 04/01/20 10:45 Active 12.5 mg PO BID Donepezil HCl 10 mg [Aricept 10 MG] Med 04/01/20 22:00 Active 5 mg PO HS Folic Acid/Vitamin B Comp W-C* [Foltx (Folbic)] Med 04/01/20 11:00 Active 1 tab PO DAILY Glipizide 2.5 mg [Glucotrol Xl 2.5 MG] Med 04/01/20 11:00 Active 5 mg PO BID Meclizine HCl 25 mg [Antivert 25 mg] Med 03/31/20 22:54 Discontinued 25 mg .ROUTE .STK-MED ONE Meclizine HCl 25 mg [Antivert 25 mg] Med 03/31/20 22:52 Discontinued 25 mg PO STAT ONE Metformin HCl 500 mg [Glucophage 500 MG] Med 04/01/20 11:00 Discontinued 850 mg PO BIDWM Metformin HCl 850 mg [Glucophage 850 MG] Med 04/01/20 17:00 Active 850 mg PO BIDWMEALS NaCl 0.9% 1000 ml [Sodium Chloride 0.9% 1000 ML] 1,000 Med 03/31/20 19:39 Discontinued ml .ROUTE UD NaCl 0.9% 1000 ml [Sodium Chloride 0.9% 1000 ML] 1,000 Med 03/31/20 19:15 Discontinued ml IV 100 mls/hr NaCl 0.9% 1000 ml [Sodium Chloride 0.9% 1000 ML] 1,000 Med 03/31/20 23:40 Active ml IV 75 mls/hr Ondansetron HCl 4 mg/2 ml [Zofran 4 MG/2 ML VIAL] Med 03/31/20 20:35 Discontinued 4 mg .ROUTE .STK-MED ONE Ondansetron HCl 4 mg/2 ml [Zofran 4 MG/2 ML VIAL] Med 03/31/20 20:36 Discontinued 4 mg IV STAT ONE Simvastatin 20Mg [Zocor 20Mg] Med 04/01/20 22:00 Active 40 mg PO HS Pulse Oximetry CONTINUOUS RT 03/31/20 23:40 Active Patient Care Notes (Last 24 hours) 04/01/20 10:04 Nursing Note by Mike Duff TELE NEURO CALLED ASKING ABOUT MRI, SPOKE TO RADIOLOGY THEY STATED MRI WOULD BE AROUND 1400, INFORMED TELE NEURO, THEY STATED THEY WILL DO THE F/U BETWEEN 1400- 1700 AFTER THE MRI Initialized on 04/01/20 10:04 - END OF NOTE 04/01/20 09:00 Case Management Note by Alcira Leyva S/W DR. CHAPA- HE WOULD LIKE MRI AND MRA OF BRAIN AND CAROTID ARTERIES. 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 (2) Dizziness Current Visit: Yes Status: Acute Code(s): R42 - DIZZINESS AND GIDDINESS (3) Headache Current Visit: Yes Status: Acute Code(s): R51 - HEADACHE * DO NOT USE * Hospital Summary - Vitals & Intake/Output Vital Signs: Vital Signs Temperature 98.1 F 04/01/20 11:30 Pulse Rate 80 04/01/20 11:30 Respiratory Rate 16 04/01/20 11:30 Blood Pressure 137/64 04/01/20 11:30 O2 Sat by Pulse Oximetry 96 04/01/20 11:30 Intake & Output: Intake & Output 03/29/20 03/30/20 03/31/20 04/01/20 11:59 11:59 11:59 11:59 Intake Total 1030 Output Total 600 Balance 430 Weight 74.3 kg - Lab Result Diagrams: 04/01/20 04:55 04/01/20 04:55 Lab Results-Last 24 Hrs: Lab Results-Last 24 Hours 03/31/20 03/31/20 03/31/20 Range/Units 18:50 18:50 18:55 WBC 8.8 (4.0-10.5) K/mm3 RBC 4.58 (4.1-5.4) M/mm3 Hgb 13.6 (12.0-16.0) gm/dl Hct 42.4 (35-47) % MCV 92.6 (78-100) fl MCH 29.7 (26-32) pg MCHC 32.1 (32-36) g/dl RDW 13.5 (11.5-14.0) % Plt Count 318 (150-450) K/mm3 MPV 9.3 (7.5-11.0) fl Gran % 58.8 (36.0-66.0) % Eos # (Auto) 0.42 (0-0.5) Absolute Lymphs (auto) 2.29 (1.0-4.6) Absolute Monos (auto) 0.85 (0.0-1.3) Lymphocytes % 26.1 (24.0-44.0) % Monocytes % 9.7 (0.0-12.0) % Eosinophils % 4.8 (0.00-5.0) % Basophils % 0.6 (0.0-0.4) % Absolute Granulocytes 5.16 (1.4-6.9) Basophils # 0.05 (0-0.4) Sodium 130 L (137-145) mmol/L Potassium 4.0 (3.5-5.1) mmol/L Chloride 94 L (98-107) mmol/L Carbon Dioxide 28 (22-30) mmol/L Anion Gap 11.9 (5-15) MEQ/L BUN 13 (7-17) mg/dL Creatinine 0.38 L (0.52-1.04) mg/dL Estimated GFR > 60.0 ML/MIN Glucose 141 H (74-106) mg/dL POC Glucometer (74 to 106) mg/dL Calcium 9.2 (8.4-10.2) mg/dL Magnesium 1.7 (1.6-2.3) mg/dL Total Bilirubin 0.80 (0.2-1.3) mg/dL AST 22 (14-36) U/L ALT 19 (0-35) U/L Alkaline Phosphatase 47 (38-126) U/L Troponin I < 0.012 (0.000-0.034) ng/mL Serum Total Protein 7.4 (6.3-8.2) g/dL Albumin 4.4 (3.5-5.0) g/dL Urine Color (YELLOW) Urine Appearance (CLEAR) Urine pH (5-6) Ur Specific [place] (1.005-1.025) Urine Protein (Negative) Urine Ketones (NEGATIVE) Urine Blood (0-5) Kwaku/ul Urine Nitrite (NEGATIVE) Urine Bilirubin (NEGATIVE) Urine Urobilinogen (0-1) mg/dL Ur Leukocyte Esterase (NEGATIVE) Urine WBC (Auto) (0-5) /HPF Urine RBC (Auto) (0-2) /HPF U Epithel Cells (Auto) (FEW) /HPF Urine Bacteria (Auto) (NEGATIVE) /HPF Amorphous Crystals (NEGATIVE) /HPF Urine Mucus (Auto) (NEGATIVE) /HPF Urine Culture Reflexed (NO) Urine Glucose (NEGATIVE) mg/dL 03/31/20 03/31/20 04/01/20 Range/Units 20:32 23:15 00:23 WBC (4.0-10.5) K/mm3 RBC (4.1-5.4) M/mm3 Hgb (12.0-16.0) gm/dl Hct (35-47) % MCV (78-100) fl MCH (26-32) pg MCHC (32-36) g/dl RDW (11.5-14.0) % Plt Count (150-450) K/mm3 MPV (7.5-11.0) fl Gran % (36.0-66.0) % Eos # (Auto) (0-0.5) Absolute Lymphs (auto) (1.0-4.6) Absolute Monos (auto) (0.0-1.3) Lymphocytes % (24.0-44.0) % Monocytes % (0.0-12.0) % Eosinophils % (0.00-5.0) % Basophils % (0.0-0.4) % Absolute Granulocytes (1.4-6.9) Basophils # (0-0.4) Sodium (137-145) mmol/L Potassium (3.5-5.1) mmol/L Chloride (98-107) mmol/L Carbon Dioxide (22-30) mmol/L Anion Gap (5-15) MEQ/L BUN (7-17) mg/dL Creatinine (0.52-1.04) mg/dL Estimated GFR ML/MIN Glucose (74-106) mg/dL POC Glucometer 195 H (74 to 106) mg/dL Calcium (8.4-10.2) mg/dL Magnesium (1.6-2.3) mg/dL Total Bilirubin (0.2-1.3) mg/dL AST (14-36) U/L ALT (0-35) U/L Alkaline Phosphatase (38-126) U/L Troponin I < 0.012 (0.000-0.034) ng/mL Serum Total Protein (6.3-8.2) g/dL Albumin (3.5-5.0) g/dL Urine Color YELLOW (YELLOW) Urine Appearance CLOUDY (CLEAR) Urine pH 8.0 (5-6) Ur Specific [place] 1.009 (1.005-1.025) Urine Protein NEGATIVE (Negative) Urine Ketones TRACE (NEGATIVE) Urine Blood SMALL (0-5) Kwaku/ul Urine Nitrite NEGATIVE (NEGATIVE) Urine Bilirubin NEGATIVE (NEGATIVE) Urine Urobilinogen NEGATIVE (0-1) mg/dL Ur Leukocyte Esterase SMALL (NEGATIVE) Urine WBC (Auto) 3-5 (0-5) /HPF Urine RBC (Auto) 6-10 (0-2) /HPF U Epithel Cells (Auto) RARE (FEW) /HPF Urine Bacteria (Auto) RARE (NEGATIVE) /HPF Amorphous Crystals FEW (NEGATIVE) /HPF Urine Mucus (Auto) SLIGHT (NEGATIVE) /HPF Urine Culture Reflexed YES (NO) Urine Glucose 50 (NEGATIVE) mg/dL 04/01/20 04/01/20 04/01/20 Range/Units 02:05 04:55 04:55 WBC 8.9 (4.0-10.5) K/mm3 RBC 4.53 (4.1-5.4) M/mm3 Hgb 13.5 (12.0-16.0) gm/dl Hct 41.4 (35-47) % MCV 91.4 (78-100) fl MCH 29.8 (26-32) pg MCHC 32.6 (32-36) g/dl RDW 13.2 (11.5-14.0) % Plt Count 317 (150-450) K/mm3 MPV 9.3 (7.5-11.0) fl Gran % 78.0 H (36.0-66.0) % Eos # (Auto) 0.01 (0-0.5) Absolute Lymphs (auto) 1.37 (1.0-4.6) Absolute Monos (auto) 0.55 (0.0-1.3) Lymphocytes % 15.4 L (24.0-44.0) % Monocytes % 6.2 (0.0-12.0) % Eosinophils % 0.1 (0.00-5.0) % Basophils % 0.3 (0.0-0.4) % Absolute Granulocytes 6.91 H (1.4-6.9) Basophils # 0.03 (0-0.4) Sodium (137-145) mmol/L Potassium (3.5-5.1) mmol/L Chloride (98-107) mmol/L Carbon Dioxide (22-30) mmol/L Anion Gap (5-15) MEQ/L BUN (7-17) mg/dL Creatinine (0.52-1.04) mg/dL Estimated GFR ML/MIN Glucose (74-106) mg/dL POC Glucometer (74 to 106) mg/dL Calcium (8.4-10.2) mg/dL Magnesium (1.6-2.3) mg/dL Total Bilirubin (0.2-1.3) mg/dL AST (14-36) U/L ALT (0-35) U/L Alkaline Phosphatase (38-126) U/L Troponin I < 0.012 < 0.012 (0.000-0.034) ng/mL Serum Total Protein (6.3-8.2) g/dL Albumin (3.5-5.0) g/dL Urine Color (YELLOW) Urine Appearance (CLEAR) Urine pH (5-6) Ur Specific [place] (1.005-1.025) Urine Protein (Negative) Urine Ketones (NEGATIVE) Urine Blood (0-5) Kwaku/ul Urine Nitrite (NEGATIVE) Urine Bilirubin (NEGATIVE) Urine Urobilinogen (0-1) mg/dL Ur Leukocyte Esterase (NEGATIVE) Urine WBC (Auto) (0-5) /HPF Urine RBC (Auto) (0-2) /HPF U Epithel Cells (Auto) (FEW) /HPF Urine Bacteria (Auto) (NEGATIVE) /HPF Amorphous Crystals (NEGATIVE) /HPF Urine Mucus (Auto) (NEGATIVE) /HPF Urine Culture Reflexed (NO) Urine Glucose (NEGATIVE) mg/dL 04/01/20 04/01/20 04/01/20 Range/Units 04:55 08:05 11:26 WBC (4.0-10.5) K/mm3 RBC (4.1-5.4) M/mm3 Hgb (12.0-16.0) gm/dl Hct (35-47) % MCV (78-100) fl MCH (26-32) pg MCHC (32-36) g/dl RDW (11.5-14.0) % Plt Count (150-450) K/mm3 MPV (7.5-11.0) fl Gran % (36.0-66.0) % Eos # (Auto) (0-0.5) Absolute Lymphs (auto) (1.0-4.6) Absolute Monos (auto) (0.0-1.3) Lymphocytes % (24.0-44.0) % Monocytes % (0.0-12.0) % Eosinophils % (0.00-5.0) % Basophils % (0.0-0.4) % Absolute Granulocytes (1.4-6.9) Basophils # (0-0.4) Sodium 128 L (137-145) mmol/L Potassium 4.5 (3.5-5.1) mmol/L Chloride 92 L (98-107) mmol/L Carbon Dioxide 26 (22-30) mmol/L Anion Gap 14.6 (5-15) MEQ/L BUN 10 (7-17) mg/dL Creatinine 0.41 L (0.52-1.04) mg/dL Estimated GFR > 60.0 ML/MIN Glucose 179 H (74-106) mg/dL POC Glucometer 238 H (74 to 106) mg/dL Calcium 9.3 (8.4-10.2) mg/dL Magnesium (1.6-2.3) mg/dL Total Bilirubin 1.10 (0.2-1.3) mg/dL AST 19 (14-36) U/L ALT 18 (0-35) U/L Alkaline Phosphatase 43 (38-126) U/L Troponin I < 0.012 (0.000-0.034) ng/mL Serum Total Protein 7.1 (6.3-8.2) g/dL Albumin 4.4 (3.5-5.0) g/dL Urine Color (YELLOW) Urine Appearance (CLEAR) Urine pH (5-6) Ur Specific [place] (1.005-1.025) Urine Protein (Negative) Urine Ketones (NEGATIVE) Urine Blood (0-5) Kwaku/ul Urine Nitrite (NEGATIVE) Urine Bilirubin (NEGATIVE) Urine Urobilinogen (0-1) mg/dL Ur Leukocyte Esterase (NEGATIVE) Urine WBC (Auto) (0-5) /HPF Urine RBC (Auto) (0-2) /HPF U Epithel Cells (Auto) (FEW) /HPF Urine Bacteria (Auto) (NEGATIVE) /HPF Amorphous Crystals (NEGATIVE) /HPF Urine Mucus (Auto) (NEGATIVE) /HPF Urine Culture Reflexed (NO) Urine Glucose (NEGATIVE) mg/dL Micro Results-Entire Visit: Microbiology 03/31/20 20:32 Urine Culture - Preliminary Urine, Void NO GROWTH TO DATE Accuchecks Date 04/01/20 Date 04/01/20 Time 08:27 Time 00:23 - Radiology Exams Ordered Rad Exams-Entire Visit: Radiology Procedures Category Date Time Status CTA HEAD W AND/OR WO CONTRAST [CT] Stat Exams 03/31/20 20:39 Completed HEAD WITHOUT CONTRAST [CT] Stat Exams 03/31/20 19:13 Completed MRA BRAIN WITHOUT CONTRAST [MRI] Urgent Exams 04/01/20 08:56 Ordered MRA NECK WITH CONTRAST [MRI] Urgent Exams 04/01/20 08:56 Ordered MRI BRAIN W/O CONTRAST [MRI] Urgent Exams 04/01/20 08:56 Ordered NECK WITH CONTRAST [CT] Stat Exams 03/31/20 20:42 Completed - Discharge Discharge Date: 04/01/20 Disposition: Home, Self-Care Condition: Stable Prescriptions: No Action Rosuvastatin Calcium [Crestor] 20 mg PO HS Metformin HCl 500 mg [Glucophage 500 MG] 850 mg PO BID Glipizide Xl 5 mg [Glucotrol Xl 5 MG] 5 mg PO BID Carvedilol 12.5 mg [Coreg 12.5 mg] 12.5 mg PO BID Amlodipine Besylate [Norvasc] 5 mg PO DAILY Cyanocobalamin/Folic AC/Vit B6 [F[place]bee Tablet] 1 tab PO DAILY Donepezil HCl 5 mg PO HS Aspirin EC 81 mg [Ecotrin 81 mg] 81 mg PO DAILY Follow up with: SHIRIN CHAPA MD [Primary Care Provider] -
--- NOTE | 2020-04-01 15:20 | XRAY ---
Indication: Dizziness and headaches. Multi-slab 3-D [id number] MRA [place] performed. Comparison: None Distal internal carotid arteries are bilaterally symmetric without critical stenosis, obstruction, or AV malformation. Normal carotid terminus with normal branching A1 and M1 segments bilaterally. The right A1 segment is attenuated with the right A2 segment predominantly supplied via anterior communicating artery. Remaining distal anterior cerebral and middle cerebral arteries are normal in MRA appearance. Incidental anatomic variant for origin of the right posterior cerebral artery. Posterior circulation demonstrates basilar artery to be normal in course and caliber without critical stenosis/obstruction. Normal appearing superior cerebellar arteries bilaterally. Also normal appearing basilar tip and posterior cerebral arteries. Impression: 1. Small right A1 segment. Patent anterior communicating artery supplies the more distal right A2 and anterior cerebral arteries. 2. Normal variant for origin right posterior cerebral artery. 3. Remaining MRA [place] is negative.
--- NOTE | 2020-04-01 15:33 | XRAY ---
Indication: Dizziness and headaches. Sagittal, coronal, and axial MRI brain was performed using T1, T2, FLAIR, diffusion, and ADC sequences. Comparison: None Numerous images are mildly degraded by motion artifact. There is age-appropriate global atrophy with minimal periventricular degenerative micro-ischemia signal bilaterally. No acute intracranial hemorrhage, abnormal extra-axial fluid collection, or mass effect. Diffusion images are negative for restricted signal. Fourth ventricle is midline without hydrocephalus. 7/8 cranial nerve complex bilaterally symmetric. Normal flow void signal within the major intracerebral circulation. Normal-appearing craniocervical junction and sella turcica. Paranasal sinuses are clear. Impression: 1. Motion artifact. 2. Atrophy and degenerative micro-ischemia within normal limits for patient's age. 3. No gross acute intracranial abnormalities or evidence for evolving large vessel territorial stroke.
[2020-04-01 16:41] VITALS: BP 163/74; PULSE 75; O2SAT 95
[2020-04-01] MEDS ORDERED: Glucophage 850 MG PO SCH (17:00)
[2020-04-01] MEDS ORDERED: NON-FORMULARY ITEM (Rosuvastatin Calcium [Crestor] 20 MG) PO SCH (22:00)
[2020-04-01] MEDS ORDERED: NON-FORMULARY ITEM (Donepezil Hcl [Donepezil Hcl] 5 MG) PO SCH (22:00)
[2020-04-01] MEDS ORDERED: GLIPIZIDE 5 MG PO SCH (22:00)
[2020-04-01] MEDS ORDERED: Aricept 10 MG PO SCH (22:00)
[2020-04-01] MEDS ORDERED: ZOCOR 20MG PO SCH (22:00)
--- NOTE | 2020-04-02 07:39 | XRAY ---
Indication: Dizziness and headaches. Conventional contrast enhanced MRA neck performed using 15 cc [place] contrast. Comparison: None Study is degraded by motion artifact. No obvious obstruction of the visualized left/right carotid and vertebral arteries. Impression: Markedly limited MRA neck with contrast exam. CTA neck 1 day earlier is more diagnostic.
[2020-04-02] MEDS ORDERED: VIT B6 PO SCH (10:00)
[2020-04-02] MEDS ORDERED: FOLIC AC PO SCH (10:00)
[2020-04-02] MEDS ORDERED: CYANOCOBALAMIN PO SCH (10:00)
[2020-04-02] MEDS ORDERED: NON-FORMULARY ITEM (Amlodipine Besylate [Norvasc] 5 MG) PO SCH (10:00)
== END 2020-04-01 18:45 | disposition home or self-care (01) ==
LOC: ED 18:40 → MED SURG 23:32
PROVIDERS: ADMIT General Practice; ATTEND General Practice
DX: G45.9 Transient cerebral ischemic attack, unspecified (principal); R51.9 Headache, unspecified; R53.1 Weakness; R11.0 Nausea; R42 Dizziness and giddiness; Z79.899 Other long term (current) drug therapy; I10 Essential (primary) hypertension; E11.9 Type 2 diabetes mellitus without complications; E78.00 Pure hypercholesterolemia, unspecified
CPT/HCPCS: 36000; 36415; 70450; 70491; 70496; 70544; 70548; 70551; 80053; 81001; 82947; 83735; 84484; 85025; 87086; 93005; 93041; 93268; 94760; 94762; 96360; 96361; 96374; 99284; G0378; U0003; J2405; A9270-GY

== ENCOUNTER 2020-07-10 10:31 | Observation (INO) | payer MEDICARE ==
[2020-07-10] MEDS ORDERED: Sodium Chloride 0.9% 1000 ML 1,000 ML IV STA (11:03)
[2020-07-10] MEDS ORDERED: Sodium Chloride 0.9% 1000 ML 1,000 ML ONE (11:19)
--- NOTE | 2020-07-10 11:19 | XRAY ---
Indication: Weakness. Comparison: None Portable chest clear with a few incidental calcified granulomas. Heart is not enlarged. Bony thorax intact with mild osteopenia, degenerative changes, and mild levoscoliosis. Impression: Nonacute chest with chronic features.
--- NOTE | 2020-07-10 11:37 | XRAY ---
Indication: Shakiness, dizziness, and loss of balance. Multiple contiguous axial images obtained through the head without contrast. Comparison: March 31, 2020. Continued stable age-appropriate global atrophy and minimal periventricular degenerative micro-ischemia bilaterally. No acute intracranial hemorrhage, abnormal extra-axial fluid collection, or mass effect. Fourth ventricle is midline without hydrocephalus. Bony calvarium remains intact. Visualized paranasal sinuses and mastoid air cells are clear. Impression: Continued nonacute senile brain.
[2020-07-10 11:39] LABS: Absolute Neutrophil Ct (ANC) 6.79 (1.4-6.9); BASOPHIL % 0.4 % (0.0-0.4); Basophil (Absolute #) 0.04 (0-0.4); Eosinophil % 1.6 % (0.00-5.0); Eosinophil (Absolute #) 0.15 (0-0.5); Hematocrit 40.2 % (35-47); Hemoglobin 13.2 gm/dl (12.0-16.0); Lymphocyte (Absolute #) 1.48 (1.0-4.6); Lymphocytes % 15.9 % (24.0-44.0); Mean Cell Volume 91.8 fl (78-100); Mean Corpuscular Hemoglobin 30.1 pg (26-32); Mean Corpuscular Hgb Concent. 32.8 g/dl (32-36); Mean Platelet Volume 8.9 fl (7.5-11.0); Monocyte (Absolute #) 0.85 (0.0-1.3); Monocytes % 9.1 % (0.0-12.0); Platelet Count 306 K/mm3 (150-450); Red Blood Count 4.38 M/mm3 (4.1-5.4); Red Cell Distribution Width 13.6 % (11.5-14.0); White Blood Count 9.3 K/mm3 (4.0-10.5)
[2020-07-10 11:52] LABS: ALBUMIN 4.3 g/dL (3.5-5.0); ALKALINE PHOSPHATASE 37 U/L (38-126); BLOOD UREA NITROGEN 13 mg/dL (7-17); CHLORIDE 92 mmol/L (98-107); Calcium 9.4 mg/dL (8.4-10.2); Carbon Dioxide 28 mmol/L (22-30); Creatinine 1 0.46 mg/dL (0.52-1.04); EST GLOMERULAR FILTRATION RATE > 60.0 ML/MIN; Glucose 141 mg/dL (74-106); MAGNESIUM 1.6 mg/dL (1.6-2.3); SGOT/AST 22 U/L (14-36); SGPT/ALT 17 U/L (0-35); SODIUM 132 mmol/L (137-145); Total Protein 6.8 g/dL (6.3-8.2)
[2020-07-10 11:54] LABS: Potassium 4.2 mmol/L (3.5-5.1)
[2020-07-10 12:03] LABS: ANION GAP 16.2 MEQ/L (5-15)
[2020-07-10 14:04] LABS: Appearance CLOUDY (CLEAR); Bacteria MODERATE /HPF (NEGATIVE); Bilirubin NEGATIVE (NEGATIVE); Blood SMALL Ery/ul (0-5); Epithelial Cells RARE /HPF (FEW); Glucose NEGATIVE (NEGATIVE); Ketones NEGATIVE (NEGATIVE); Leukocyte Esterase LARGE (NEGATIVE); Mucus SLIGHT /HPF (NEGATIVE); Nitrite NEGATIVE (NEGATIVE); Non-Squamous Epithelial Cells RARE /HPF (FEW); Protein,Urine Dip 30 (Negative); Specific Gravity 1.012 (1.005-1.025); Urobilinogen NEGATIVE mg/dL (0-1); WBC >100 /HPF (0-5)
--- NOTE | 2020-07-10 14:07 | ERPHSYRPT ---
- History of Present Illness Time Seen by Provider: 07/10/20 10:52 Source: patient Exam Limitations: no limitations Patient Subjective Stated Complaint: pt co being shaky and staggery this am, she denies dizziness or being light heated, pt states loose stools for 2 days, only once a day. Triage Nursing Assessment: pt alert arrived per ambulance, skin w/d/p. resp easy,face mask in place,abd soft, Physician History: 80 years old with DM, HTN , CAD presented with sudden onset shakiness in arms and generalized weakness/ fatigure agter she got out of bathroom this morning around 9 am , got better with resting . not having faver chills cough or shortness of breath. no chest pain /abdominal pain N/V/D. Timing/Duration: today, sudden, improved Severity: moderate Modifying Factors: Worsens With: movement Associated Symptoms: weakness, No nausea, No vomiting, No abdominal pain, No shortness of breath, No heartburn, No diaphoresis, No cough, No chills, No chest pain, No headaches, No loss of appetite, No malaise, No syncope Allergies/Adverse Reactions: clindamycin Allergy (Intermediate, Verified 07/10/20 10:48) Swelling Penicillins Allergy (Mild, Verified 07/10/20 10:48) Rash lisinopril Adverse Reaction (Intermediate, Verified 07/10/20 10:48) Cough losartan [Losartan] Adverse Reaction (Intermediate, Verified 07/10/20 10:48) metoprolol Adverse Reaction (Intermediate, Verified 07/10/20 10:48) Nausea doxycycline Adverse Reaction (Mild, Verified 07/10/20 10:48) Diarrhea Home Medications: Glipizide Xl 5 mg [Glucotrol Xl 5 MG] 5 mg PO BID 01/28/12 [History] Metformin HCl 500 mg [Glucophage 500 MG] 850 mg PO BID 01/28/12 [History] Rosuvastatin Calcium [Crestor] 20 mg PO HS 01/28/12 [History] Amlodipine Besylate [Norvasc] 5 mg PO DAILY 04/08/15 [History] Carvedilol 12.5 mg [Coreg 12.5 mg] 12.5 mg PO BID 04/08/15 [History] Donepezil HCl 5 mg PO HS 03/31/20 [History] Aspirin EC 81 mg [Ecotrin 81 mg] 81 mg PO DAILY 04/01/20 [History] PARoxetine HCL [Paroxetine HCl] 1 ea DAILY 07/10/20 [History] Hx Tetanus, Diphtheria Vaccination/Date Given: No Hx Influenza Vaccination/Date Given: No Hx Pneumococcal Vaccination/Date Given: No Immunizations Up to Date: Yes Travel Risk - International Travel Have you traveled outside of the country in past 3 weeks: No - Coronavirus Screening Are you exhibiting any of the following symptoms?: No Close contact with a COVID-19 positive Pt in past 14-21 Days: No - Vaccine Status Have you recieved a Covid-19 vaccination: No - Review of Systems Constitutional: Fatigue, Weakness Eyes: No Symptoms Ears, Nose, & Throat: No Symptoms Respiratory: No Symptoms Cardiac: No Symptoms Abdominal/Gastrointestinal: No Symptoms Genitourinary Symptoms: No Symptoms Musculoskeletal: No Symptoms Skin: No Symptoms Neurological: No Focal Weakness, No Headache, No Sensory Changes Psychological: No Symptoms Endocrine: No Symptoms Hematologic/Lymphatic: No Symptoms Immunological/Allergic: No Symptoms - Past Medical History Pertinent Past Medical History: Yes Neurological History: Migraines ENT History: No Pertinent History Cardiac History: High Cholesterol, Hypertension, Other Respiratory History: No Pertinent History Endocrine Medical History: Diabetes Type II Musculoskeletal History: Arthritis GI Medical History: No Pertinent History History: No Pertinent History Psycho-Social History: No Pertinent History Female Reproductive Disorders: No Pertinent History - Past Surgical History Past Surgical History: Yes Neuro Surgical History: No Pertinent History Cardiac: No Pertinent History Respiratory: No Pertinent History Gastrointestinal: No Pertinent History Genitourinary: No Pertinent History Musculoskeletal: Joint Replacement Female Surgical History: Lumpectomy Other Surgical History: cyst from ovaries, cyst from scalp, lumpectomy, KNEE REPLACEMENT - Social History Smoking Status: Never smoker Exposure to second hand smoke: Yes Drug Use: none Patient Lives Alone: No - Female History Hx Last Menstrual Period: post Hx Now: No - Nursing Vital Signs Nursing Vital Signs: Initial Vital Signs Temperature 97.0 F 07/10/20 10:36 Pulse Rate 68 07/10/20 10:36 Respiratory Rate 20 07/10/20 10:36 Blood Pressure 133/67 07/10/20 10:36 O2 Sat by Pulse Oximetry 97 07/10/20 10:36 Pain Scale Pain Intensity 0 - Physical Exam General Appearance: no apparent distress, alert, anxiety Eye Exam: PERRL/EOMI, eyes nml inspection Ears, Nose, Throat Exam: normal ENT inspection, TMs normal, pharynx normal Neck Exam: normal inspection, non-tender, supple, full range of motion Respiratory Exam: normal breath sounds, lungs clear Cardiovascular Exam: regular rate/rhythm, normal heart sounds Gastrointestinal/Abdomen Exam: soft, normal bowel sounds, No tenderness Back Exam: normal inspection, normal range of motion Extremity Exam: normal inspection, normal range of motion, pelvis stable Neurologic Exam: alert, oriented x 3, cooperative, sheet rocker II-XII nml as tested, normal mood/affect, nml cerebellar function, sensation nml, No motor deficits Skin Exam: normal color SpO2 Interpretation: normal SpO2: 99 O2 Delivery: Room Air - Course EKG Interpreted by Me: RATE ([id number]), Sinus Rhythm, NORMAL AXIS, Left Bundle Branch Block Ordered Tests: Active Orders 24 hr Category Date Time Status Reimbursement Specialist STAT Care 07/10/20 11:04 Active EKG-ER Only STAT Care 07/10/20 11:03 Active IV Insertion STAT Care 07/10/20 11:03 Active Orthostatic Vital Signs STAT Care 07/10/20 11:03 Active CHEST 1 VIEW (PORTABLE) Stat Exams 07/10/20 11:03 Completed HEAD WITHOUT CONTRAST [CT] Stat Exams 07/10/20 11:04 Completed BLOOD CULTURE Stat Lab 07/10/20 14:20 Ordered CBC W DIFF Stat Lab 07/10/20 11:30 Completed CMP Stat Lab 07/10/20 11:30 Completed CULTURE,URINE Stat Lab 07/10/20 11:30 Received Lactic Acid Stat Lab 07/10/20 11:03 Completed Lactic Acid Stat Lab 07/10/20 13:43 Completed MAGNESIUM Stat Lab 07/10/20 11:30 Completed TROPONIN Q3H Lab 07/10/20 11:30 Completed TROPONIN Q3H Lab 07/10/20 14:01 Received TROPONIN Q3H Lab 07/10/20 17:15 Ordered TROPONIN Q3H Lab 07/10/20 20:15 Ordered TROPONIN Q3H Lab 07/10/20 23:15 Ordered UA W/RFX UR CULTURE Stat Lab 07/10/20 11:30 Completed Medication Summary Generic Name Dose Route Start Last Admin Trade Name Freq PRN Reason Stop Dose Admin Levofloxacin/Dextrose 500 mg in 100 mls @ 100 mls/hr 07/10/20 14:19 Levofloxacin 500mg/100ml D5w IV 07/10/20 15:18 STAT STA Discontinued Medications Generic Name Dose Route Start Last Admin Trade Name Zoey PRN Reason Stop Dose Admin Sodium Chloride 1,000 mls @ 500 mls/hr 07/10/20 11:03 07/10/20 13:30 Sodium Chloride 0.9% 1000 Ml IV 07/10/20 13:02 Infused .Q2H STA Infusion Sodium Chloride Confirm 07/10/20 11:19 Sodium Chloride 0.9% 1000 Ml Administered 07/10/20 11:20 Dose 1,000 mls @ ud .[facility]OUTE .[facility] Lab/Rad Data: Laboratory Result Diagrams 07/10/20 11:30 07/10/20 11:30 Laboratory Results 07/10/20 07/10/20 07/10/20 Range/Units 13:43 11:30 11:30 WBC (4.0-10.5) K/mm3 RBC (4.1-5.4) M/mm3 Hgb (12.0-16.0) gm/dl Hct (35-47) % MCV (78-100) fl MCH (26-32) pg MCHC (32-36) g/dl RDW (11.5-14.0) % Plt Count (150-450) K/mm3 MPV (7.5-11.0) fl Gran % (36.0-66.0) % Eos # (Auto) (0-0.5) Absolute Lymphs (auto) (1.0-4.6) Absolute Monos (auto) (0.0-1.3) Lymphocytes % (24.0-44.0) % Monocytes % (0.0-12.0) % Eosinophils % (0.00-5.0) % Basophils % (0.0-0.4) % Absolute Granulocytes (1.4-6.9) Basophils # (0-0.4) Sodium 132 L (137-145) mmol/L Potassium 4.2 (3.5-5.1) mmol/L Chloride 92 L (98-107) mmol/L Carbon Dioxide 28 (22-30) mmol/L Anion Gap 16.2 H (5-15) MEQ/L BUN 13 (7-17) mg/dL Creatinine 0.46 L (0.52-1.04) mg/dL Estimated GFR > 60.0 ML/MIN Glucose 141 H (74-106) mg/dL Lactic Acid 1.6 (0.4-2.0) Calcium 9.4 (8.4-10.2) mg/dL Magnesium 1.6 (1.6-2.3) mg/dL Total Bilirubin 1.00 (0.2-1.3) mg/dL AST 22 (14-36) U/L ALT 17 (0-35) U/L Alkaline Phosphatase 37 L (38-126) U/L Troponin I < 0.012 (0.000-0.034) ng/mL Serum Total Protein 6.8 (6.3-8.2) g/dL Albumin 4.3 (3.5-5.0) g/dL Urine Color (YELLOW) Urine Appearance (CLEAR) Urine pH (5-6) Ur Specific [place] (1.005-1.025) Urine Protein (Negative) Urine Ketones (NEGATIVE) Urine Blood (0-5) Kw[place]/ul Urine Nitrite (NEGATIVE) Urine Bilirubin (NEGATIVE) Urine Urobilinogen (0-1) mg/dL Ur Leukocyte Esterase (NEGATIVE) Urine WBC (Auto) (0-5) /HPF Urine RBC (Auto) (0-2) /HPF U Hyaline Cast (Auto) (0-2) /LPF U Epithel Cells (Auto) (FEW) /HPF Urine Bacteria (Auto) (NEGATIVE) /HPF U Non-Squamous Epi Cells (FEW) /HPF Urine Mucus (Auto) (NEGATIVE) /HPF Urine Culture Reflexed (NO) Urine Glucose (NEGATIVE) mg/dL 07/10/20 07/10/20 07/10/20 Range/Units 11:30 11:30 11:03 WBC 9.3 (4.0-10.5) K/mm3 RBC 4.38 (4.1-5.4) M/mm3 Hgb 13.2 (12.0-16.0) gm/dl Hct 40.2 (35-47) % MCV 91.8 (78-100) fl MCH 30.1 (26-32) pg MCHC 32.8 (32-36) g/dl RDW 13.6 (11.5-14.0) % Plt Count 306 (150-450) K/mm3 MPV 8.9 (7.5-11.0) fl Gran % 73.0 H (36.0-66.0) % Eos # (Auto) 0.15 (0-0.5) Absolute Lymphs (auto) 1.48 (1.0-4.6) Absolute Monos (auto) 0.85 (0.0-1.3) Lymphocytes % 15.9 L (24.0-44.0) % Monocytes % 9.1 (0.0-12.0) % Eosinophils % 1.6 (0.00-5.0) % Basophils % 0.4 (0.0-0.4) % Absolute Granulocytes 6.79 (1.4-6.9) Basophils # 0.04 (0-0.4) Sodium (137-145) mmol/L Potassium (3.5-5.1) mmol/L Chloride (98-107) mmol/L Carbon Dioxide (22-30) mmol/L Anion Gap (5-15) MEQ/L BUN (7-17) mg/dL Creatinine (0.52-1.04) mg/dL Estimated GFR ML/MIN Glucose (74-106) mg/dL Lactic Acid 2.3 H (0.4-2.0) Calcium (8.4-10.2) mg/dL Magnesium (1.6-2.3) mg/dL Total Bilirubin (0.2-1.3) mg/dL AST (14-36) U/L ALT (0-35) U/L Alkaline Phosphatase (38-126) U/L Troponin I (0.000-0.034) ng/mL Serum Total Protein (6.3-8.2) g/dL Albumin (3.5-5.0) g/dL Urine Color YELLOW (YELLOW) Urine Appearance CLOUDY (CLEAR) Urine pH 6.0 (5-6) Ur Specific [place] 1.012 (1.005-1.025) Urine Protein 30 (Negative) Urine Ketones NEGATIVE (NEGATIVE) Urine Blood SMALL (0-5) [place]/ul Urine Nitrite NEGATIVE (NEGATIVE) Urine Bilirubin NEGATIVE (NEGATIVE) Urine Urobilinogen NEGATIVE (0-1) mg/dL Ur Leukocyte Esterase LARGE (NEGATIVE) Urine WBC (Auto) >100 (0-5) /HPF Urine RBC (Auto) 11-15 (0-2) /HPF U Hyaline Cast (Auto) 6-10 (0-2) /LPF U Epithel Cells (Auto) RARE (FEW) /HPF Urine Bacteria (Auto) MODERATE (NEGATIVE) /HPF U Non-Squamous Epi Cells RARE (FEW) /HPF Urine Mucus (Auto) SLIGHT (NEGATIVE) /HPF Urine Culture Reflexed YES (NO) Urine Glucose NEGATIVE (NEGATIVE) mg/dL - Progress Progress: improved, re-examined Progress Note: 07/10/20 14:24 80 years old is evaluated for generalized weakness and shakiness this morning. She has negative orthostatics. She has a nonfocal neuro exam throughout stay in the ER on repeated evaluations. I have obtained CT head which is negative for any acute cardiopulmonary findings. EKG showed sinus rhythm with no acute ST elevation. Work-up showed normal white count, mildly elevated lactate of 2.3, given fluid bolus and chemistry profile consistent with mild dehydration. Patient is feeling better on reevaluation. Urinalysis consistent with UTI. Given a dose of Levaquin. Discussed with Dr. hCapa who is out of town patient's primary care doctor. Discussed with Dr. Marte electronics technician and patient is accepted for admission. Discussed with Dr.: Cameron Riggins Will see patient in: hospital (observation) Counseled pt/family regarding: lab results, diagnosis, rad results - Departure Departure Disposition: Observation Clinical Impression: General weakness UTI (urinary tract infection) Qualifiers: Urinary tract infection type: site unspecified Hematuria presence: with hematuria Qualified Code(s): N39.0 - Urinary tract infection, site not specified; R31.9 - Hematuria, unspecified Condition: Stable Critical Care Time: No Referrals: SHIRIN CHAPA MD [Primary Care Provider] -
[2020-07-10] MEDS ORDERED: Levofloxacin 500MG/100ML D5W 500 MG/100 ML BAG IV STA (14:19)
[2020-07-10] MEDS ORDERED: Levofloxacin 500MG/100ML D5W 500 MG/100 ML BAG IV ONE (14:42)
[2020-07-10 15:33] LABS: INFLUENZA A NEGATIVE (NEGATIVE); INFLUENZA B NEGATIVE (NEGATIVE); RESPIRATORY SYNCTIAL VIRUS NEGATIVE (Negative)
[2020-07-10] MEDS ORDERED: DUONEB 0.5-3 MG/3 ml Neb IH PRN (16:51)
[2020-07-10] MEDS ORDERED: TYLENOL 325 MG PO PRN (16:51)
[2020-07-10] MEDS ORDERED: HUMALOG SQ PRN (16:51)
[2020-07-10] MEDS ORDERED: Sodium Chloride 0.9% 1000 ML 1,000 ML IV SCH (18:00)
[2020-07-10] MEDS ORDERED: ZOCOR 20MG PO SCH (22:00)
[2020-07-10] MEDS ORDERED: Paxil 20 MG PO SCH (22:00)
[2020-07-10] MEDS ORDERED: Aricept 10 MG PO SCH (22:00)
[2020-07-10] MEDS: COREG 12.5 MG PO SCH (22:23)
[2020-07-11 06:16] LABS: Absolute Neutrophil Ct (ANC) 3.22 (1.4-6.9); BASOPHIL % 0.5 % (0.0-0.4); Basophil (Absolute #) 0.03 (0-0.4); Eosinophil (Absolute #) 0.12 (0-0.5); Hematocrit 37.6 % (35-47); Hemoglobin 12.3 gm/dl (12.0-16.0); Lymphocyte (Absolute #) 1.92 (1.0-4.6); Lymphocytes % 31.5 % (24.0-44.0); Mean Cell Volume 91.9 fl (78-100); Mean Corpuscular Hemoglobin 30.1 pg (26-32); Mean Corpuscular Hgb Concent. 32.7 g/dl (32-36); Mean Platelet Volume 9.4 fl (7.5-11.0); Monocyte (Absolute #) 0.81 (0.0-1.3); Monocytes % 13.3 % (0.0-12.0); Neutrophil % 52.7 % (36.0-66.0); Platelet Count 286 K/mm3 (150-450); Red Blood Count 4.09 M/mm3 (4.1-5.4); Red Cell Distribution Width 13.4 % (11.5-14.0); White Blood Count 6.1 K/mm3 (4.0-10.5)
[2020-07-11 06:26] LABS: ALBUMIN 3.7 g/dL (3.5-5.0); ALKALINE PHOSPHATASE 35 U/L (38-126); ANION GAP 10.8 MEQ/L (5-15); BLOOD UREA NITROGEN 9 mg/dL (7-17); CHLORIDE 96 mmol/L (98-107); Calcium 8.8 mg/dL (8.4-10.2); Carbon Dioxide 28 mmol/L (22-30); EST GLOMERULAR FILTRATION RATE > 60.0 ML/MIN; Glucose 111 mg/dL (74-106); Potassium 3.7 mmol/L (3.5-5.1); SGOT/AST 20 U/L (14-36); SGPT/ALT 14 U/L (0-35); SODIUM 131 mmol/L (137-145); Total Protein 6.2 g/dL (6.3-8.2)
[2020-07-11] MEDS ORDERED: Glucotrol 5 MG PO SCH (08:00)
[2020-07-11] MEDS: Glucotrol Xl 2.5 MG PO SCH ×2 (08:55→17:58)
[2020-07-11] MEDS: Glucophage 850 MG PO SCH ×2 (08:55→17:58)
[2020-07-11] MEDS: COREG 12.5 MG PO SCH (08:56)
[2020-07-11] MEDS ORDERED: Levofloxacin 500MG/100ML D5W 500 MG/100 ML BAG IV SCH (10:00)
[2020-07-11] MEDS ORDERED: FOLTX (FOLBIC) PO SCH (10:00)
[2020-07-11] MEDS ORDERED: NORVASC 5 MG PO SCH (10:00)
[2020-07-11] MEDS ORDERED: NON-FORMULARY ITEM (Amlodipine Besylate [Norvasc] 5 MG) PO SCH (10:00)
[2020-07-11] MEDS ORDERED: BABY ASPIRIN 81 MG CHEW PO SCH (10:00)
[2020-07-11] MEDS ORDERED: FOLIC ACID PO SCH (10:00)
[2020-07-11] MEDS ORDERED: VIT B COMPLEX AND C PO SCH (10:00)
[2020-07-11] MEDS ORDERED: PROTONIX 40 MG IV IV SCH (10:00)
[2020-07-11] MEDS ORDERED: ECOTRIN 81 MG PO SCH (10:00)
[2020-07-11 11:34] VITALS: O2SAT 96
[2020-07-11 16:16] VITALS: BP 120/57; PULSE 73
--- NOTE | 2020-07-11 17:24 | PCM.DCORD ---
- Discharge Disposition: HOME HEALTH SERVICE Condition: Stable Prescriptions: New Glipizide 2.5 mg [Glucotrol Xl 2.5 MG] 5 mg PO DAILY #30 tab.sa.osm Changed Metformin HCl 500 mg [Glucophage 500 MG] 850 mg PO DAILY #30 tablet No Action Rosuvastatin Calcium [Crestor] 20 mg PO HS Glipizide Xl 5 mg [Glucotrol Xl 5 MG] 5 mg PO BID Carvedilol 12.5 mg [Coreg 12.5 mg] 12.5 mg PO BID Amlodipine Besylate [Norvasc] 5 mg PO DAILY Donepezil HCl 5 mg PO HS PARoxetine HCL [Paroxetine HCl] 20 mg PO HS Aspirin 81 gm Chew [Baby Aspirin 81 mg Chew] 81 mg PO DAILY Folic Acid/Vit B Complex and C [Folbee Plus Tablet] 1 tab PO DAILY Additional Instructions: Home Health to eval for all modalities due to risk for fall due to spells of dizziness ,generalized weakness.PT,monitor meds and sugars and B/P. Follow up with: SHIRIN CHAPA MD [Primary Care Provider] -
--- NOTE | 2020-07-11 17:46 | PCM.SSS ---
History of Present Illness - Chief Complaint Chief Complaint: Acute UTI; Generalized Weakness History of Present Illness: is an 80 year old female with DM2,HTN,CAD and mild dementia who lives alone and came to ER with shakiness especially in her hands and generalized weakness. She was admitted to observation and treated with IV fluids and antibiotic for UTI and hyponatremia .She is a patient of Dr Chapa. - Review of Systems Constitutional: Weakness Eyes: No Symptoms Ears, Nose, & Throat: No Symptoms Respiratory: No Symptoms Cardiac: No Symptoms Abdominal/Gastrointestinal: Other (has 2 days of loose stol,no N/V or abdominal pain) Genitourinary Symptoms: Frequency Musculoskeletal: Other (no acute joint pains) Neurological: Other (no focal weakness) Psychological: Anxiety Endocrine: Other (diabetes with some hypoglycemia,craves pop/sugar per daughter) Immunological/Allergic: No Symptoms Medications & Allergies Home Medications: Home Medication List Rosuvastatin Calcium [Crestor] 20 mg PO HS 01/28/12 [History Confirmed 07/10/20] Amlodipine Besylate [Norvasc] 5 mg PO DAILY 04/08/15 [History Confirmed 07/10/20] Carvedilol 12.5 mg [Coreg 12.5 mg] 12.5 mg PO BID 04/08/15 [History Confirmed 07/10/20] Donepezil HCl 5 mg PO HS 03/31/20 [History Confirmed 07/10/20] Aspirin 81 gm Chew [Baby Aspirin 81 mg Chew] 81 mg PO DAILY 07/10/20 [History Confirmed 07/10/20] Folic Acid/Vit B Complex and C [Folbee Plus Tablet] 1 tab PO DAILY 07/10/20 [History Confirmed 07/10/20] PARoxetine HCL [Paroxetine HCl] 20 mg PO HS 07/10/20 [History Confirmed 07/10/20] Glipizide 2.5 mg [Glucotrol Xl 2.5 MG] 5 mg PO DAILY #30 tab.sa.osm 07/11/20 [Rx] Metformin HCl 500 mg [Glucophage 500 MG] 850 mg PO DAILY #30 tablet 07/11/20 [Rx] Allergies/Adverse Reactions: Allergies Allergy/AdvReac Type Severity Reaction Status Date / Time clindamycin Allergy Intermediate Swelling Verified 07/10/20 10:48 Penicillins Allergy Mild Rash Verified 07/10/20 10:48 lisinopril AdvReac Intermediate Cough Verified 07/10/20 10:48 losartan [Losartan] AdvReac Intermediate Verified 07/10/20 10:48 metoprolol AdvReac Intermediate Nausea Verified 07/10/20 10:48 doxycycline AdvReac Mild Diarrhea Verified 07/10/20 10:48 - Past Medical History Past Medical History: Yes Neurological History: Migraines ENT History: Cataracts Cardiac History: High Cholesterol, Hypertension, Other Respiratory History: No Pertinent History Endocrine Medical History: Diabetes Type II Musculoskelatal History: Arthritis GI Medical History: No Pertinent History History: No Pertinent History Pyscho-Social History: No Pertinent History Reproductive Disorders: No Pertinent History - Female History Hx Last Menstrual Period: post Are you now?: No - Past Surgical History Past Surgical History: Yes Neuro Surgical History: No Pertinent History Cardiac History: No Pertinent History Respiratory Surgery: No Pertinent History GI Surgical History: No Pertinent History Genitourinary Surgical Hx: No Pertinent History Musculskeletal Surgical Hx: Joint Replacement Female Surgical History: Lumpectomy Other Surgical History: cyst from ovaries, cyst from scalp, lumpectomy, KNEE REPLACEMENT - Social History Smoking Status: Never smoker Exposure to second hand smoke: Yes Alcohol: None Drug Use: none - Physical Exam Vital Signs: Vital Signs - 24 hr Temp Pulse Resp BP BP Pulse Ox 07/11/20 16:00 98.3 F 73 16 120/57 96 07/11/20 11:33 97.9 F 78 16 129/60 96 07/11/20 07:02 97.9 F 77 16 151/68 93 L 07/11/20 04:00 98.6 F 75 17 146/67 96 07/11/20 00:00 98.6 F 76 17 112/54 95 07/10/20 19:53 98.5 F 82 17 136/63 95 07/10/20 18:13 98.5 F 74 18 149/77 130/61 96 General Appearance: no apparent distress Neurologic Exam: alert, oriented x 3, cooperative, pipe line gauger II-XII nml as tested, normal mood/affect, nml station & gait (for age,foreward bent upon standing) Eye Exam: eyes nml inspection Ears, Nose, Throat Exam: normal ENT inspection Neck Exam: normal inspection Respiratory Exam: normal breath sounds Cardiovascular Exam: regular rate/rhythm Gastrointestinal/Abdomen Exam: soft, normal bowel sounds (nontender) Pelvic Exam: not done Rectal Exam: not done Back Exam: other (no CVA tenderness) Skin Exam: normal color, warm, dry Results - Labs Lab/Micro Results: Lab Results-Last 24 Hours 07/10/20 07/10/20 07/10/20 Range/Units 11:05 17:56 17:56 WBC (4.0-10.5) K/mm3 RBC (4.1-5.4) M/mm3 Hgb (12.0-16.0) gm/dl Hct (35-47) % MCV (78-100) fl MCH (26-32) pg MCHC (32-36) g/dl RDW (11.5-14.0) % Plt Count (150-450) K/mm3 MPV (7.5-11.0) fl Gran % (36.0-66.0) % Eos # (Auto) (0-0.5) Absolute Lymphs (auto) (1.0-4.6) Absolute Monos (auto) (0.0-1.3) Lymphocytes % (24.0-44.0) % Monocytes % (0.0-12.0) % Eosinophils % (0.00-5.0) % Basophils % (0.0-0.4) % Absolute Granulocytes (1.4-6.9) Basophils # (0-0.4) Sodium (137-145) mmol/L Potassium (3.5-5.1) mmol/L Chloride (98-107) mmol/L Carbon Dioxide (22-30) mmol/L Anion Gap (5-15) MEQ/L BUN (7-17) mg/dL Creatinine (0.52-1.04) mg/dL Estimated GFR ML/MIN Glucose (74-106) mg/dL POC Glucometer (74 to 106) mg/dL Hemoglobin A1c 5.48 (4.5-6.0) % Calcium (8.4-10.2) mg/dL Total Bilirubin (0.2-1.3) mg/dL AST (14-36) U/L ALT (0-35) U/L Alkaline Phosphatase (38-126) U/L Troponin I < 0.012 (0.000-0.034) ng/mL NT-Pro-B Natriuret Pep 221 (0-1800) pg/mL Serum Total Protein (6.3-8.2) g/dL Albumin (3.5-5.0) g/dL 07/10/20 07/10/20 07/10/20 Range/Units 20:19 20:30 23:10 WBC (4.0-10.5) K/mm3 RBC (4.1-5.4) M/mm3 Hgb (12.0-16.0) gm/dl Hct (35-47) % MCV (78-100) fl MCH (26-32) pg MCHC (32-36) g/dl RDW (11.5-14.0) % Plt Count (150-450) K/mm3 MPV (7.5-11.0) fl Gran % (36.0-66.0) % Eos # (Auto) (0-0.5) Absolute Lymphs (auto) (1.0-4.6) Absolute Monos (auto) (0.0-1.3) Lymphocytes % (24.0-44.0) % Monocytes % (0.0-12.0) % Eosinophils % (0.00-5.0) % Basophils % (0.0-0.4) % Absolute Granulocytes (1.4-6.9) Basophils # (0-0.4) Sodium (137-145) mmol/L Potassium (3.5-5.1) mmol/L Chloride (98-107) mmol/L Carbon Dioxide (22-30) mmol/L Anion Gap (5-15) MEQ/L BUN (7-17) mg/dL Creatinine (0.52-1.04) mg/dL Estimated GFR ML/MIN Glucose (74-106) mg/dL POC Glucometer 160 H (74 to 106) mg/dL Hemoglobin A1c (4.5-6.0) % Calcium (8.4-10.2) mg/dL Total Bilirubin (0.2-1.3) mg/dL AST (14-36) U/L ALT (0-35) U/L Alkaline Phosphatase (38-126) U/L Troponin I < 0.012 < 0.012 (0.000-0.034) ng/mL NT-Pro-B Natriuret Pep (0-1800) pg/mL Serum Total Protein (6.3-8.2) g/dL Albumin (3.5-5.0) g/dL 07/11/20 07/11/20 07/11/20 Range/Units 05:30 05:30 06:42 WBC 6.1 (4.0-10.5) K/mm3 RBC 4.09 L (4.1-5.4) M/mm3 Hgb 12.3 (12.0-16.0) gm/dl Hct 37.6 (35-47) % MCV 91.9 (78-100) fl MCH 30.1 (26-32) pg MCHC 32.7 (32-36) g/dl RDW 13.4 (11.5-14.0) % Plt Count 286 (150-450) K/mm3 MPV 9.4 (7.5-11.0) fl Gran % 52.7 (36.0-66.0) % Eos # (Auto) 0.12 (0-0.5) Absolute Lymphs (auto) 1.92 (1.0-4.6) Absolute Monos (auto) 0.81 (0.0-1.3) Lymphocytes % 31.5 (24.0-44.0) % Monocytes % 13.3 H (0.0-12.0) % Eosinophils % 2.0 (0.00-5.0) % Basophils % 0.5 (0.0-0.4) % Absolute Granulocytes 3.22 (1.4-6.9) Basophils # 0.03 (0-0.4) Sodium 131 L (137-145) mmol/L Potassium 3.7 (3.5-5.1) mmol/L Chloride 96 L (98-107) mmol/L Carbon Dioxide 28 (22-30) mmol/L Anion Gap 10.8 (5-15) MEQ/L BUN 9 (7-17) mg/dL Creatinine 0.40 L (0.52-1.04) mg/dL Estimated GFR > 60.0 ML/MIN Glucose 111 H (74-106) mg/dL POC Glucometer 128 H (74 to 106) mg/dL Hemoglobin A1c (4.5-6.0) % Calcium 8.8 (8.4-10.2) mg/dL Total Bilirubin 1.10 (0.2-1.3) mg/dL AST 20 (14-36) U/L ALT 14 (0-35) U/L Alkaline Phosphatase 35 L (38-126) U/L Troponin I (0.000-0.034) ng/mL NT-Pro-B Natriuret Pep (0-1800) pg/mL Serum Total Protein 6.2 L (6.3-8.2) g/dL Albumin 3.7 (3.5-5.0) g/dL 07/11/20 07/11/20 Range/Units 11:24 16:45 WBC (4.0-10.5) K/mm3 RBC (4.1-5.4) M/mm3 Hgb (12.0-16.0) gm/dl Hct (35-47) % MCV (78-100) fl MCH (26-32) pg MCHC (32-36) g/dl RDW (11.5-14.0) % Plt Count (150-450) K/mm3 MPV (7.5-11.0) fl Gran % (36.0-66.0) % Eos # (Auto) (0-0.5) Absolute Lymphs (auto) (1.0-4.6) Absolute Monos (auto) (0.0-1.3) Lymphocytes % (24.0-44.0) % Monocytes % (0.0-12.0) % Eosinophils % (0.00-5.0) % Basophils % (0.0-0.4) % Absolute Granulocytes (1.4-6.9) Basophils # (0-0.4) Sodium (137-145) mmol/L Potassium (3.5-5.1) mmol/L Chloride (98-107) mmol/L Carbon Dioxide (22-30) mmol/L Anion Gap (5-15) MEQ/L BUN (7-17) mg/dL Creatinine (0.52-1.04) mg/dL Estimated GFR ML/MIN Glucose (74-106) mg/dL POC Glucometer 171 H 79 (74 to 106) mg/dL Hemoglobin A1c (4.5-6.0) % Calcium (8.4-10.2) mg/dL Total Bilirubin (0.2-1.3) mg/dL AST (14-36) U/L ALT (0-35) U/L Alkaline Phosphatase (38-126) U/L Troponin I (0.000-0.034) ng/mL NT-Pro-B Natriuret Pep (0-1800) pg/mL Serum Total Protein (6.3-8.2) g/dL Albumin (3.5-5.0) g/dL Microbiology 07/10/20 11:30 Urine Culture - Preliminary Clean Catch Midstream <10K NORMAL SKIN CAITY PROBABLE SKIN CONTAMINANT Accuchecks Date 07/11/20 Date 07/11/20 Date 07/11/20 Date 07/10/20 Time 16:46 Time 11:33 Time 07:01 Time 22:00 - Radiology Impressions Radiology Exams & Impressions: Radiology Procedures Category Date Time Status CHEST 1 VIEW (PORTABLE) Stat Exams 07/10/20 11:03 Completed HEAD WITHOUT CONTRAST [CT] Stat Exams 07/10/20 11:04 Completed Assessment/Plan (1) General weakness Status: Resolved Assessment & Plan: blood cultures no growth,improved with hydration and decreased dose of oral diabetic meds. Code(s): R53.1 - WEAKNESS (2) UTI (urinary tract infection) Status: Resolved Qualifiers: Urinary tract infection type: site unspecified Hematuria presence: with hematuria Qualified Code(s): N39.0 - Urinary tract infection, site not specified; R31.9 - Hematuria, unspecified Assessment & Plan: urine culture mixed caity,>100 WBC . given Levaquin IV. On CBC -Granulocytes 73% down to 51% without elevated WBC. Code(s): N39.0 - URINARY TRACT INFECTION, SITE NOT SPECIFIED (3) Hypoglycemia Status: Chronic Assessment & Plan: from Hx -spells of weakness and unsteady gait. A1C=5.4%. Glucotrol and Metformin reduced from bid to q day.Patient drinks pop and misses meals at home ,eating failry well at each meal in the hospital. Will need Home Health to evaluate ability to function at home. Code(s): E16.2 - HYPOGLYCEMIA, UNSPECIFIED (4) Dementia Status: Chronic Qualifiers: Dementia behavioral disturbance: without behavioral disturbance Assessment & Plan: on Donepezil Code(s): F03.90 - UNSPECIFIED DEMENTIA WITHOUT BEHAVIORAL DISTURBANCE (5) Hyponatremia Status: Acute Assessment & Plan: follow as outpatient Code(s): E87.1 - HYPO-OSMOLALITY AND HYPONATREMIA Hospital Summary - Hospital Course Hospital Course: Patient is an elderly women with DM2,HTN,CAD and mild dementia who lives alone. She c/o loose stools a few days prior to coming to ER for weakness and shakiness in her hands. While in the hospital patient was afebrile and eating fairly well without complaints. IV fluids and Levaquin brought her quickly to baseline. She will need Home health/PT as she is at risk for fall,also to observe her ability to care for herself at home and to monitor her meds and sugars. Urine culture reported mixed caity and blood cultures were negative.Sugar between meals dropped to 79. A1C is 5.4% . Glucotrol and Metformin doses were decreased and this change was explained to her daughter,also diet to avoid pop and to not skip meals.Sodium remained low at 131 which will need monitored as putpatient. She will follow up in a week with her PCP. - Vitals & Intake/Output Vital Signs: Vital Signs Temperature 98.3 F 07/11/20 16:00 Pulse Rate 73 07/11/20 16:00 Respiratory Rate 16 07/11/20 16:00 Blood Pressure 120/57 07/11/20 16:00 O2 Sat by Pulse Oximetry 96 07/11/20 16:00 Intake & Output: Intake & Output 07/09/20 07/10/20 07/11/20 07/12/20 11:59 11:59 11:59 11:59 Intake Total 1192 380 Output Total 1300 400 Balance -108 -20 Weight 74.9 kg 73 kg - Lab Result Diagrams: 07/11/20 05:30 07/11/20 05:30 Lab Results-Last 24 Hrs: Lab Results-Last 24 Hours 07/10/20 07/10/20 07/10/20 Range/Units 11:05 17:56 17:56 WBC (4.0-10.5) K/mm3 RBC (4.1-5.4) M/mm3 Hgb (12.0-16.0) gm/dl Hct (35-47) % MCV (78-100) fl MCH (26-32) pg MCHC (32-36) g/dl RDW (11.5-14.0) % Plt Count (150-450) K/mm3 MPV (7.5-11.0) fl Gran % (36.0-66.0) % Eos # (Auto) (0-0.5) Absolute Lymphs (auto) (1.0-4.6) Absolute Monos (auto) (0.0-1.3) Lymphocytes % (24.0-44.0) % Monocytes % (0.0-12.0) % Eosinophils % (0.00-5.0) % Basophils % (0.0-0.4) % Absolute Granulocytes (1.4-6.9) Basophils # (0-0.4) Sodium (137-145) mmol/L Potassium (3.5-5.1) mmol/L Chloride (98-107) mmol/L Carbon Dioxide (22-30) mmol/L Anion Gap (5-15) MEQ/L BUN (7-17) mg/dL Creatinine (0.52-1.04) mg/dL Estimated GFR ML/MIN Glucose (74-106) mg/dL POC Glucometer (74 to 106) mg/dL Hemoglobin A1c 5.48 (4.5-6.0) % Calcium (8.4-10.2) mg/dL Total Bilirubin (0.2-1.3) mg/dL AST (14-36) U/L ALT (0-35) U/L Alkaline Phosphatase (38-126) U/L Troponin I < 0.012 (0.000-0.034) ng/mL NT-Pro-B Natriuret Pep 221 (0-1800) pg/mL Serum Total Protein (6.3-8.2) g/dL Albumin (3.5-5.0) g/dL 07/10/20 07/10/20 07/10/20 Range/Units 20:19 20:30 23:10 WBC (4.0-10.5) K/mm3 RBC (4.1-5.4) M/mm3 Hgb (12.0-16.0) gm/dl Hct (35-47) % MCV (78-100) fl MCH (26-32) pg MCHC (32-36) g/dl RDW (11.5-14.0) % Plt Count (150-450) K/mm3 MPV (7.5-11.0) fl Gran % (36.0-66.0) % Eos # (Auto) (0-0.5) Absolute Lymphs (auto) (1.0-4.6) Absolute Monos (auto) (0.0-1.3) Lymphocytes % (24.0-44.0) % Monocytes % (0.0-12.0) % Eosinophils % (0.00-5.0) % Basophils % (0.0-0.4) % Absolute Granulocytes (1.4-6.9) Basophils # (0-0.4) Sodium (137-145) mmol/L Potassium (3.5-5.1) mmol/L Chloride (98-107) mmol/L Carbon Dioxide (22-30) mmol/L Anion Gap (5-15) MEQ/L BUN (7-17) mg/dL Creatinine (0.52-1.04) mg/dL Estimated GFR ML/MIN Glucose (74-106) mg/dL POC Glucometer 160 H (74 to 106) mg/dL Hemoglobin A1c (4.5-6.0) % Calcium (8.4-10.2) mg/dL Total Bilirubin (0.2-1.3) mg/dL AST (14-36) U/L ALT (0-35) U/L Alkaline Phosphatase (38-126) U/L Troponin I < 0.012 < 0.012 (0.000-0.034) ng/mL NT-Pro-B Natriuret Pep (0-1800) pg/mL Serum Total Protein (6.3-8.2) g/dL Albumin (3.5-5.0) g/dL 07/11/20 07/11/20 07/11/20 Range/Units 05:30 05:30 06:42 WBC 6.1 (4.0-10.5) K/mm3 RBC 4.09 L (4.1-5.4) M/mm3 Hgb 12.3 (12.0-16.0) gm/dl Hct 37.6 (35-47) % MCV 91.9 (78-100) fl MCH 30.1 (26-32) pg MCHC 32.7 (32-36) g/dl RDW 13.4 (11.5-14.0) % Plt Count 286 (150-450) K/mm3 MPV 9.4 (7.5-11.0) fl Gran % 52.7 (36.0-66.0) % Eos # (Auto) 0.12 (0-0.5) Absolute Lymphs (auto) 1.92 (1.0-4.6) Absolute Monos (auto) 0.81 (0.0-1.3) Lymphocytes % 31.5 (24.0-44.0) % Monocytes % 13.3 H (0.0-12.0) % Eosinophils % 2.0 (0.00-5.0) % Basophils % 0.5 (0.0-0.4) % Absolute Granulocytes 3.22 (1.4-6.9) Basophils # 0.03 (0-0.4) Sodium 131 L (137-145) mmol/L Potassium 3.7 (3.5-5.1) mmol/L Chloride 96 L (98-107) mmol/L Carbon Dioxide 28 (22-30) mmol/L Anion Gap 10.8 (5-15) MEQ/L BUN 9 (7-17) mg/dL Creatinine 0.40 L (0.52-1.04) mg/dL Estimated GFR > 60.0 ML/MIN Glucose 111 H (74-106) mg/dL POC Glucometer 128 H (74 to 106) mg/dL Hemoglobin A1c (4.5-6.0) % Calcium 8.8 (8.4-10.2) mg/dL Total Bilirubin 1.10 (0.2-1.3) mg/dL AST 20 (14-36) U/L ALT 14 (0-35) U/L Alkaline Phosphatase 35 L (38-126) U/L Troponin I (0.000-0.034) ng/mL NT-Pro-B Natriuret Pep (0-1800) pg/mL Serum Total Protein 6.2 L (6.3-8.2) g/dL Albumin 3.7 (3.5-5.0) g/dL 07/11/20 07/11/20 Range/Units 11:24 16:45 WBC (4.0-10.5) K/mm3 RBC (4.1-5.4) M/mm3 Hgb (12.0-16.0) gm/dl Hct (35-47) % MCV (78-100) fl MCH (26-32) pg MCHC (32-36) g/dl RDW (11.5-14.0) % Plt Count (150-450) K/mm3 MPV (7.5-11.0) fl Gran % (36.0-66.0) % Eos # (Auto) (0-0.5) Absolute Lymphs (auto) (1.0-4.6) Absolute Monos (auto) (0.0-1.3) Lymphocytes % (24.0-44.0) % Monocytes % (0.0-12.0) % Eosinophils % (0.00-5.0) % Basophils % (0.0-0.4) % Absolute Granulocytes (1.4-6.9) Basophils # (0-0.4) Sodium (137-145) mmol/L Potassium (3.5-5.1) mmol/L Chloride (98-107) mmol/L Carbon Dioxide (22-30) mmol/L Anion Gap (5-15) MEQ/L BUN (7-17) mg/dL Creatinine (0.52-1.04) mg/dL Estimated GFR ML/MIN Glucose (74-106) mg/dL POC Glucometer 171 H 79 (74 to 106) mg/dL Hemoglobin A1c (4.5-6.0) % Calcium (8.4-10.2) mg/dL Total Bilirubin (0.2-1.3) mg/dL AST (14-36) U/L ALT (0-35) U/L Alkaline Phosphatase (38-126) U/L Troponin I (0.000-0.034) ng/mL NT-Pro-B Natriuret Pep (0-1800) pg/mL Serum Total Protein (6.3-8.2) g/dL Albumin (3.5-5.0) g/dL Micro Results-Entire Visit: Microbiology 07/10/20 11:30 Urine Culture - Preliminary Clean Catch Midstream <10K NORMAL SKIN CAITY PROBABLE SKIN CONTAMINANT Accuchecks Date 07/11/20 Date 07/11/20 Date 07/11/20 Date 07/10/20 Time 16:46 Time 11:33 Time 07:01 Time 22:00 - Radiology Exams Ordered Rad Exams-Entire Visit: Radiology Procedures Category Date Time Status CHEST 1 VIEW (PORTABLE) Stat Exams 07/10/20 11:03 Completed HEAD WITHOUT CONTRAST [CT] Stat Exams 07/10/20 11:04 Completed - Discharge Disposition: HOME HEALTH SERVICE Condition: Stable Prescriptions: New Glipizide 2.5 mg [Glucotrol Xl 2.5 MG] 5 mg PO DAILY #30 tab.sa.osm Continue Rosuvastatin Calcium [Crestor] 20 mg PO HS Carvedilol 12.5 mg [Coreg 12.5 mg] 12.5 mg PO BID Amlodipine Besylate [Norvasc] 5 mg PO DAILY Donepezil HCl 5 mg PO HS PARoxetine HCL [Paroxetine HCl] 20 mg PO HS Aspirin 81 gm Chew [Baby Aspirin 81 mg Chew] 81 mg PO DAILY Folic Acid/Vit B Complex and C [Folbee Plus Tablet] 1 tab PO DAILY Changed Metformin HCl 500 mg [Glucophage 500 MG] 850 mg PO DAILY #30 tablet Discontinued Glipizide Xl 5 mg [Glucotrol Xl 5 MG] 5 mg PO BID Instructions: Urinary Tract Infections in Adults, Hyperglycemia, Adult, Diabetes Type 2 (DC) Additional Instructions: Home Health to eval for all modalities due to risk for fall due to spells of dizziness ,generalized weakness.PT,monitor meds and sugars and B/P. Follow up with: SHIRIN CHAPA MD [Primary Care Provider] - Call for Appointment Forms: Discharge Instructions
== END 2020-07-11 18:28 | disposition home health service (06) ==
LOC: ED 10:31 → MED SURG 16:42
PROVIDERS: ADMIT Family Medicine; ATTEND General Practice
DX: R53.1 Weakness (principal); N39.0 Urinary tract infection, site not specified; I25.10 Atherosclerotic heart disease of native coronary artery without angina pectoris; F03.90 Unspecified dementia, unspecified severity, without behavioral disturbance, psychotic disturbance, mood disturbance, and anxiety; Z79.899 Other long term (current) drug therapy; I10 Essential (primary) hypertension; E11.649 Type 2 diabetes mellitus with hypoglycemia without coma; E87.1 Hypo-osmolality and hyponatremia
CPT/HCPCS: 0241U; 36000; 36415; 70450; 71045; 80053; 81001; 82947; 83036; 83605; 83735; 83880; 84484; 85025; 87040; 87086; 93005; 93041; 93268; 96360; 96365; 99285; G0378; J1956; A9270-GY